=== PATIENT | male | born 1975 | race Caucasian/White ===

== ENCOUNTER 2021-01-10 07:49 | Inpatient (IN) | payer BC ==
[2021-01-10] MEDS ORDERED: Sodium Chloride 0.9% 1,000 ML IV ONE (08:08)
[2021-01-10] MEDS ORDERED: Ondansetron 4 MG/2 ML SDV IV ONE (08:08)
[2021-01-10] MEDS ORDERED: HYDROmorphone 1 MG/ML Syringe IVPUSH ONE ×3 (08:08→10:58)
--- NOTE | 2021-01-10 08:21 | EDM.PDOC ---
"<Annalisa Sheldonian - Last Filed: 01/10/21 10:28> ED HPI GENERAL MEDICAL PROBLEM - General Chief Complaint: Gastrointestinal Problem Stated Complaint: AMBULANCE Time Seen by Provider: 01/10/21 08:12 - Related Data Allergies Allergy/AdvReac Type Severity Reaction Status Date / Time No Known Allergies Allergy Verified 01/10/21 08:05 Home Meds: Home Meds Metoprolol Succinate 25 mg PO DAILY 01/10/21 [History] Course - Radiology Interpretation Free Text/Narrative:: [facility] Final Radiology Report Call: [phone] assistance Online chat: [email or web address] Name: JAZIEL SOLIZ Age: 45Years M Date: 01/10/2021 SSN: -- : [id number] Study: CT ABDOMEN PELVIS W CONT Requesting Physician: ANNALISA SHELDON Images: [phone] Addl Studies: Provided Clinical History: abdominal pain, Lipase >1900 Contrast: With Contrast Medium: Isovue 300 Contrast Amount: 100 mL Contrast Method: Intravenous (IV) Page 1 of 2 PROCEDURE INFORMATION: Exam: CT Abdomen And Pelvis With Contrast Exam date and time: 01/10/2021 9:24 AM Age: 45 years old Clinical indication: Other: Abdominal pain, lipase >1900 TECHNIQUE: Imaging protocol: Computed tomography of the abdomen and pelvis with contrast. Radiation optimization: All CT scans at this facility use at least one of these dose optimization techniques: automated exposure control; mA and/or kV adjustment per patient size (includes targeted exams where dose is matched to clinical indication); or iterative reconstruction. Contrast material: ISOVUE 300; Contrast volume: 100 ml; Contrast route: INTRAVENOUS (IV); COMPARISON: No relevant prior studies available. FINDINGS: Liver: Diffuse fatty infiltration of the liver. Liver is enlarged at 21.8 cm. Gallbladder and bile ducts: The gallbladder is normal. No dilatation of the intrahepatic or extrahepatic bile ducts. Pancreas: Calcifications present in the head of the pancreas. There is edema present in the peripancreatic. Pancreatic duct is dilated measuring 5 mm. Spleen: Calcified splenic granulomas. Adrenal glands: Normal. No mass. Kidneys and ureters: Nonobstructive left nephrolithiasis measuring 5 mm. Stomach and bowel: Unremarkable. No obstruction. No mucosal thickening. Appendix: No evidence of appendicitis. Intraperitoneal space: Unremarkable. No free air. No significant fluid collection. Vasculature: Unremarkable. No abdominal aortic aneurysm. JAZIEL SOLIZ | Final Radiology Report CONFIDENTIALITY STATEMENT This report is intended only for use by the referring physician, and only in accordance with law. If you received this in error, call [phone]. Page 2 of 2 Lymph nodes: Unremarkable. No enlarged lymph nodes. Urinary bladder: Unremarkable as visualized. Reproductive: Unremarkable as visualized. Bones/joints: Sclerotic bone island present in the left femoral neck. Soft tissues: Unremarkable. Other findings: Elevated left hemidiaphragm. IMPRESSION: 1. Acute pancreatitis. Edema present around the pancreas with no cyst formation. There are findings of chronic pancreatitis including pancreatic duct dilatation and calcifications in the pancreatic head. Recommend follow-up. 2. Nonobstructive left nephrolithiasis. 3. Diffuse fat infiltration of the liver. 4. Left diaphragmatic hernia. Thank you for allowing us to participate in the care of your patient. Dictated and Authenticated by: Ludwin Patricio MD 01/10/2021 10:20 AM Central Time ([place] & [place]) Departure - Departure Disposition: Admitted As Inpatient 67 Clinical Impression: Pancreatitis Qualifiers: Chronicity: acute Pancreatitis type: alcohol induced Acute pancreatitis complication: unspecified Qualified Code(s): K85.20 - Alcohol induced acute pancreatitis without necrosis or infection - Discharge Information Forms: ED Department Discharge <Naeem Murphy Vinny - Last Filed: 01/10/21 10:49> ED HPI GENERAL MEDICAL PROBLEM - General Source of Information: Reports: Patient History Limitations: Reports: No Limitations - History of Present Illness INITIAL COMMENTS - FREE TEXT/NARRATIVE: 45 y/o M c/o diffuse abd pn started at 0600 this morning. The pain is 10/10 sharp in nature, constant, non radiating. Hx of pancreatitis and a hernia repair. [facility] when the pain started. Pt got off the train in [place] and called 911 and was then brought in by EMS. Has not been passing flatus since the pain started nor has he had any bowel movements. Denies fever, cough, cp, back on, NVD, flank pn, denies trauma or foreign objects to rectum, denies blood in stool or urine. 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 Abdominal Pain Score (Numeric/FACES): 10 Past Medical History HEENT History: Reports: Impaired Vision Cardiovascular History: Reports: Hypertension Respiratory History: Reports: None Gastrointestinal History: Reports: Other (See Below) Other Gastrointestinal History: hx hernia surgery Genitourinary History: Reports: None Musculoskeletal History: Reports: None Neurological History: Reports: None Psychiatric History: Reports: None Endocrine/Metabolic History: Reports: None Hematologic History: Reports: None Immunologic History: Reports: None Oncologic (Cancer) History: Reports: None Dermatologic History: Reports: None - Infectious Disease History Infectious Disease History: Reports: None - Past Surgical History Head Surgeries/Procedures: Reports: None Social & Family History - Family History Family Medical History: No Pertinent Family History - Tobacco Use Tobacco Use Status *Q: Never Tobacco User - Caffeine Use Caffeine Use: Reports: Soda - Recreational Drug Use Recreational Drug Use: No ED ROS GENERAL - Review of Systems Review Of Systems: Comprehensive ROS is negative, except as noted in HPI. ED EXAM, GI/ABD - Physical Exam Exam: See Below Exam Limited By: No Limitations General Appearance: Alert, Anxious, Moderate Distress Throat/Mouth: Normal Inspection, Normal Lips, Normal Teeth, Normal Gums, Normal Oropharynx, Normal Voice, No Airway Compromise Head: Atraumatic, Normocephalic Neck: Normal Inspection, Supple, Non-Tender, Full Range of Motion Respiratory/Chest: Lungs Clear, Normal Breath Sounds Cardiovascular: Regular Rate, Rhythm, Tachycardia GI/Abdominal Exam: Distended, Tender (tender throughout no brusing or visible trauma. ) (Male) Exam: Deferred Rectal (Males) Exam: Deferred Back Exam: Normal Inspection, Full Range of Motion Extremities: Normal Inspection, Normal Range of Motion, Non-Tender, Normal Capillary Refill, No Pedal Edema Neurological: Alert, Oriented, CN II-XII Intact, Normal Cognition, Normal Gait, Normal Reflexes, No Motor/Sensory Deficits Psychiatric: Anxious (from pain) Course - Vital Signs Last Recorded V/S: Last Vital Signs Temp 96.4 F L 01/10/21 07:57 Pulse 93 01/10/21 07:57 Resp 20 01/10/21 07:57 BP 155/108 H 01/10/21 07:57 Pulse Ox 93 L 01/10/21 07:57 - Orders/Labs/Meds Orders: Active Orders 24 hr Category Date Time Status Peripheral IV Care [RC] . DIRECTED Care 01/10/21 08:08 Active DRUG SCREEN URINE BIORAD [URCHEM] Stat Lab 01/10/21 08:07 Ordered UA RFX BRISEYDA AND CULT IF INDIC [URIN] Stat Lab 01/10/21 08:08 Ordered Sodium Chloride 0.9% [Saline Flush] Med 01/10/21 08:08 Active 10 ml FLUSH ASDIRECTED PRN Peripheral IV Insertion Adult [OM.PC] Stat Oth 01/10/21 08:08 Ordered Medication Orders Sodium Chloride (Sodium Chloride 0.9% 10 Ml Syringe) 10 ml FLUSH ASDIRECTED PRN PRN Reason: Keep Vein Open Last Admin: 01/10/21 08:24 Dose: 10 ml Documented by: MAKAYLA Labs: Laboratory Tests 01/10/21 01/10/21 01/10/21 Range/Units 08:14 08:14 08:14 WBC 6.4 (5.0-10.0) 10^3/uL RBC 4.78 (4.6-6.2) 10^6/uL Hgb 15.9 (14.0-18.0) g/dL Hct 44.3 (40.0-54.0) % MCV 92.7 (80-100) fL MCH 33.3 (27.0-34.0) pg MCHC 35.9 H (33.0-35.0) g/dL Plt Count 269 (150-450) 10^3/uL Neut % (Auto) 72.5 (42.2-75.2) % Lymph % (Auto) 16.5 L (20.5-50.1) % Wells % (Auto) 9.4 H (2-8) % Eos % (Auto) 1.1 (1.0-3.0) % Baso % (Auto) 0.5 (0.0-1.0) % Sodium 140 (136-145) mmol/L Potassium 4.5 (3.5-5.1) mmol/L Chloride 103 (98-107) mmol/L Carbon Dioxide 27 (21-32) mmol/L Anion Gap 14.5 H (7-13) mEq/L BUN 16 (7-18) mg/dL Creatinine 1.09 (0.70-1.30) mg/dL Est Cr Clr Drug Dosing 128.28 mL/min Estimated GFR (MDRD) > 60 BUN/Creatinine Ratio 14.7 (No establ ref range) Glucose 108 H (70-99) mg/dL Lactic Acid 1.5 (0.4-2.0) mmol/L Calcium 8.8 (8.5-10.1) mg/dL Total Bilirubin 0.4 (0.2-1.0) mg/dL AST 34 (15-37) U/L ALT 51 (16-63) U/L Alkaline Phosphatase 102 (46-116) U/L C-Reactive Protein < 0.2 (0.0-0.9) mg/dL Total Protein 6.9 (6.4-8.2) g/dL Albumin 3.7 (3.4-5.0) g/dL Globulin 3.2 Albumin/Globulin Ratio 1.2 Amylase 165 H (25-115) U/L Lipase 1938 H (73-393) U/L Meds: Medications Generic Name Dose Route Start Last Admin Trade Name Judy PRN Reason Stop Dose Admin Sodium Chloride 10 ml 01/10/21 08:08 01/10/21 08:24 Sodium Chloride 0.9% 10 Ml Syringe FLUSH 10 ml ASDIRECTED PRN Administration Keep Vein Open Discontinued Medications Generic Name Dose Route Start Last Admin Trade Name Judy PRN Reason Stop Dose Admin Hydromorphone HCl 1 mg 01/10/21 08:08 01/10/21 08:19 Hydromorphone 1 Mg/Ml Syringe IVPUSH 01/10/21 08:09 1 mg ONETIME ONE Administration Hydromorphone HCl 1 mg 01/10/21 08:46 01/10/21 09:06 Hydromorphone 1 Mg/Ml Syringe IVPUSH 01/10/21 08:47 1 mg ONETIME ONE Administration Sodium Chloride 1,000 mls @ 999 mls/hr 01/10/21 08:08 01/10/21 08:23 Normal Saline IV 01/10/21 09:08 999 mls/hr .BOLUS ONE Administration Iopamidol 100 ml 01/10/21 08:45 01/10/21 10:05 Iopamidol 612 Mg/Ml 100 Ml Bottle IVPUSH 01/10/21 08:46 100 ml ONETIME ONE Administration Ondansetron HCl 4 mg 01/10/21 08:08 01/10/21 08:20 Ondansetron 4 Mg/2 Ml Sdv IV 01/10/21 08:09 4 mg ONETIME ONE Administration Ondansetron HCl 4 mg 01/10/21 08:46 Ondansetron 4 Mg/2 Ml Sdv IV 01/10/21 08:47 ONETIME ONE - Re-Assessments/Exams Free Text/Narrative Re-Assessment/Exam: 01/10/21 10:43 Consulted with the customer care voice consultant hospitalist Dr. Hu who accepted the pt for further treatment. Departure - Departure Time of Disposition: 10:44 (Admitted by Dr. Hu) Condition: Fair - Discharge Information *PRESCRIPTION DRUG MONITORING PROGRAM REVIEWED*: Not Applicable *COPY OF PRESCRIPTION DRUG MONITORING REPORT IN PATIENT VON: Not Applicable Sepsis Event Note (ED) - Evaluation Sepsis Screening Result: No Definite Risk - Focused Exam Vital Signs: Vital Signs Temp Pulse Resp BP Pulse Ox 01/10/21 07:57 96.4 F L 93 20 155/108 H 93 L"
[2021-01-10] MEDS: Sodium Chloride 0.9% 10 ML Syringe FLUSH PRN (08:24)
[2021-01-10] MEDS ORDERED: Iopamidol 612 MG/ML 100 ML Bottle IVPUSH ONE (08:45)
[2021-01-10 08:49] LABS: ANION GAP 14.5 mEq/L (7-13); CHLORIDE,CL 103 mmol/L (98-107); SODIUM,NA 140 mmol/L (136-145)
--- NOTE | 2021-01-10 10:21 | CT ---
PROCEDURE INFORMATION: Exam: CT Abdomen And Pelvis With Contrast Exam date and time: 01/10/2021 9:24 AM Age: 45 years old Clinical indication: Other: Abdominal pain, lipase >1900 TECHNIQUE: Imaging protocol: Computed tomography of the abdomen and pelvis with contrast. Radiation optimization: All CT scans at this facility use at least one of these dose optimization techniques: automated exposure control; mA and/or kV adjustment per patient size (includes targeted exams where dose is matched to clinical indication); or iterative reconstruction. Contrast material: ISOVUE 300; Contrast volume: 100 ml; Contrast route: INTRAVENOUS (IV); COMPARISON: No relevant prior studies available. FINDINGS: Liver: Diffuse fatty infiltration of the liver. Liver is enlarged at 21.8 cm. Gallbladder and bile ducts: The gallbladder is normal. No dilatation of the intrahepatic or extrahepatic bile ducts. Pancreas: Calcifications present in the head of the pancreas. There is edema present in the peripancreatic. Pancreatic duct is dilated measuring 5 mm. Spleen: Calcified splenic granulomas. Adrenal glands: Normal. No mass. Kidneys and ureters: Nonobstructive left nephrolithiasis measuring 5 mm. Stomach and bowel: Unremarkable. No obstruction. No mucosal thickening. Appendix: No evidence of appendicitis. Intraperitoneal space: Unremarkable. No free air. No significant fluid collection. Vasculature: Unremarkable. No abdominal aortic aneurysm. Lymph nodes: Unremarkable. No enlarged lymph nodes. Urinary bladder: Unremarkable as visualized. Reproductive: Unremarkable as visualized. Bones/joints: Sclerotic bone island present in the left femoral neck. Soft tissues: Unremarkable. Other findings: Elevated left hemidiaphragm. IMPRESSION: 1. Acute pancreatitis. Edema present around the pancreas with no cyst formation. There are findings of chronic pancreatitis including pancreatic duct dilatation and calcifications in the pancreatic head. Recommend follow-up. 2. Nonobstructive left nephrolithiasis. 3. Diffuse fat infiltration of the liver. 4. Left diaphragmatic hernia.
[2021-01-10] MEDS: Ondansetron 4 MG/2 ML SDV IV ONE ×2 (11:01→11:03)
[2021-01-10] MEDS ORDERED: Ondansetron 4 MG/2 ML SDV ONE (11:05)
[2021-01-10] MEDS ORDERED: Ondansetron 4 MG Tab.DIS PO PRN (12:35)
[2021-01-10] MEDS ORDERED: Temazepam 15 MG Cap PO PRN (12:35)
[2021-01-10] MEDS ORDERED: Promethazine 25 MG/ML SDV IM PRN (12:35)
--- NOTE | 2021-01-10 12:49 | PCM.HP ---
H&P History of Present Illness - General Date of Service: 01/10/21 Admit Problem/Dx: Admission Diagnosis/Problem Admission Diagnosis/Problem Abdominal pain. - History of Present Illness Initial Comments - Free Text/Narative: Abdominal pain and nausea. Other HPI/Comments: Mr. Marie is a 45-year-old male with his history of alcoholism and chronic pancreatitis who presented to the ED with an episode of acute abdominal pain. He was on a train on his way from [place] to [facility] when he developed a sudden onset of epigastric and LUQ abdominal pain. The pain is a dull in nature, about 8 out of 10 intensity mainly epigastric and left upper quadrant regions. It feels similar to his prior acute pancreatitis pain. He also has some nausea but no vomiting. He has had about 6 episodes of acute pancreatitis in the past requiring hospitalizations in different hospitals. His most recent episode was about a week ago in [place]. He admits to having had 2 to 3 glasses of wine yesterday and thinks that this may have triggered the pain episode. He was a heavy alcohol drinker until about 7 years ago. 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 He admits to drinking heavily during the time and admits to trying out a few street drugs such as marijuana and cocaine. After he got he moved to [place] where he currently lives with his family. Abdominal Pain Score (Numeric/FACES): 2 - Related Data Allergies/Adverse Reactions: Allergies Allergy/AdvReac Type Severity Reaction Status Date / Time No Known Allergies Allergy Verified 01/10/21 12:08 Home Medications: Home Meds Escitalopram Oxalate [Lexapro] 20 mg PO DAILY 01/10/21 [History] Past Medical History HEENT History: Reports: Impaired Vision Cardiovascular History: Reports: Hypertension Respiratory History: Reports: None Gastrointestinal History: Reports: Pancreatitis, Other (See Below) Other Gastrointestinal History: hx hernia surgery Genitourinary History: Reports: None Musculoskeletal History: Reports: None Neurological History: Reports: None Psychiatric History: Reports: None Endocrine/Metabolic History: Reports: None Hematologic History: Reports: None Immunologic History: Reports: None Oncologic (Cancer) History: Reports: None Dermatologic History: Reports: None - Infectious Disease History Infectious Disease History: Reports: None - Past Surgical History Head Surgeries/Procedures: Reports: None Social & Family History - Family History Family Medical History: No Pertinent Family History - Tobacco Use Tobacco Use Status *Q: Never Tobacco User - Caffeine Use Caffeine Use: Reports: Soda - Recreational Drug Use Recreational Drug Use: No H&P Review of Systems - Review of Systems: Review Of Systems: See Below Review of Systems Comment:: General: denies any fever, chills or malaise. CVS: Denies any chest pain or angina symptoms lungs: Denies any cough, wheezes or SOB PA: denies any vomiting, hematochezia or change in bowel habits. EVELYN: Denies any dysuria , frequency , urgency or hematuria neuro: Denies any seizures, tremors or focal weaknesses psych: Denies being depressed. Denies having any hallucinations. Exam - Exam Exam: See Below - Vital Signs Vital Signs: Last Vital Signs Temp 98.4 F 01/10/21 12:07 Pulse 97 01/10/21 12:07 Resp 16 01/10/21 12:07 BP 143/87 H 01/10/21 12:07 Pulse Ox 100 01/10/21 12:07 Weight: 229 lb - Exam Physical Exam Comments:: General: well developed male. In no acute distress CVS: S1S2 appreciated. RRR, no murmurs, rubs or gallops. lungs: clear bilaterally. no rales or wheezes pa: soft, tender LUQ. no rebound or guarding ext: no clubbing, cyanosis or edema neuro: no focal deficits. - Patient Data Lab Results Last 24 hrs: Laboratory Results - last 24 hr 01/10/21 01/10/21 01/10/21 Range/Units 08:14 08:14 08:14 WBC 6.4 (5.0-10.0) 10^3/uL RBC 4.78 (4.6-6.2) 10^6/uL Hgb 15.9 (14.0-18.0) g/dL Hct 44.3 (40.0-54.0) % MCV 92.7 (80-100) fL MCH 33.3 (27.0-34.0) pg MCHC 35.9 H (33.0-35.0) g/dL Plt Count 269 (150-450) 10^3/uL Neut % (Auto) 72.5 (42.2-75.2) % Lymph % (Auto) 16.5 L (20.5-50.1) % Carver % (Auto) 9.4 H (2-8) % Eos % (Auto) 1.1 (1.0-3.0) % Baso % (Auto) 0.5 (0.0-1.0) % Sodium 140 (136-145) mmol/L Potassium 4.5 (3.5-5.1) mmol/L Chloride 103 (98-107) mmol/L Carbon Dioxide 27 (21-32) mmol/L Anion Gap 14.5 H (7-13) mEq/L BUN 16 (7-18) mg/dL Creatinine 1.09 (0.70-1.30) mg/dL Est Cr Clr Drug Dosing 128.28 mL/min Estimated GFR (MDRD) > 60 BUN/Creatinine Ratio 14.7 (No establ ref range) Glucose 108 H (70-99) mg/dL Lactic Acid 1.5 (0.4-2.0) mmol/L Calcium 8.8 (8.5-10.1) mg/dL Total Bilirubin 0.4 (0.2-1.0) mg/dL AST 34 (15-37) U/L ALT 51 (16-63) U/L Alkaline Phosphatase 102 (46-116) U/L C-Reactive Protein < 0.2 (0.0-0.9) mg/dL Total Protein 6.9 (6.4-8.2) g/dL Albumin 3.7 (3.4-5.0) g/dL Globulin 3.2 Albumin/Globulin Ratio 1.2 Amylase 165 H (25-115) U/L Lipase 1938 H (73-393) U/L SARS-CoV-2 RNA (GAYE) (NEGATIVE) 01/10/21 Range/Units 11:06 WBC (5.0-10.0) 10^3/uL RBC (4.6-6.2) 10^6/uL Hgb (14.0-18.0) g/dL Hct (40.0-54.0) % MCV (80-100) fL MCH (27.0-34.0) pg MCHC (33.0-35.0) g/dL Plt Count (150-450) 10^3/uL Neut % (Auto) (42.2-75.2) % Lymph % (Auto) (20.5-50.1) % Carver % (Auto) (2-8) % Eos % (Auto) (1.0-3.0) % Baso % (Auto) (0.0-1.0) % Sodium (136-145) mmol/L Potassium (3.5-5.1) mmol/L Chloride (98-107) mmol/L Carbon Dioxide (21-32) mmol/L Anion Gap (7-13) mEq/L BUN (7-18) mg/dL Creatinine (0.70-1.30) mg/dL Est Cr Clr Drug Dosing mL/min Estimated GFR (MDRD) BUN/Creatinine Ratio (No establ ref range) Glucose (70-99) mg/dL Lactic Acid (0.4-2.0) mmol/L Calcium (8.5-10.1) mg/dL Total Bilirubin (0.2-1.0) mg/dL AST (15-37) U/L ALT (16-63) U/L Alkaline Phosphatase (46-116) U/L C-Reactive Protein (0.0-0.9) mg/dL Total Protein (6.4-8.2) g/dL Albumin (3.4-5.0) g/dL Globulin Albumin/Globulin Ratio Amylase (25-115) U/L Lipase (73-393) U/L SARS-CoV-2 RNA (GAYE) Negative (NEGATIVE) Result Diagrams: 01/10/21 08:14 01/10/21 08:14 - Problem List (1) Acute on chronic pancreatitis SNOMED Code(s): 390676410 ICD Code: K85.90 - ACUTE PANCREATITIS WITHOUT NECROSIS OR INFECTION, UNSP; K86.1 - OTHER CHRONIC PANCREATITIS Status: Acute Current Visit: Yes (2) DVT prophylaxis SNOMED Code(s): 523839904, 711408670 ICD Code: Z29.9 - ENCOUNTER FOR PROPHYLACTIC MEASURES, UNSPECIFIED Status: Acute Current Visit: Yes (3) Full code status SNOMED Code(s): 537519571 ICD Code: Z78.9 - OTHER SPECIFIED HEALTH STATUS Status: Acute Current Visit: Yes (4) Alcoholism SNOMED Code(s): 5024955 ICD Code: F10.20 - ALCOHOL DEPENDENCE, UNCOMPLICATED Status: Acute Current Visit: Yes Problem List Initiated/Reviewed/Updated: Yes Orders Last 24hrs: Active Orders 24 hr Category Date Time Status Admission Diagnosis [ADT] Stat ADT 01/10/21 11:21 Ordered Admission Status [Patient Status] [ADT] Routine ADT 01/10/21 11:21 Active Antiembolic Devices [RC] PER UNIT ROUTINE Care 01/10/21 12:37 Ordered Oxygen Therapy [RC] PRN Care 01/10/21 12:35 Ordered Up ad Bree [RC] ASDIRECTED Care 01/10/21 12:35 Ordered VTE/DVT Education [RC] PER UNIT ROUTINE Care 01/10/21 12:35 Ordered Vital Signs [RC] Q4H Care 01/10/21 12:35 Ordered Nothing per Oral Now Diet [DIET] Diet 01/10/21 Lunch Ordered DRUG SCREEN URINE BIORAD [URCHEM] Stat Lab 01/10/21 08:07 Ordered UA RFX BRISEYDA AND CULT IF INDIC [URIN] Stat Lab 01/10/21 08:08 Ordered Acetaminophen/oxyCODONE [Percocet 325-5 MG] Med 01/10/21 12:35 Ordered 1 tab PO Q4H PRN Dextrose 5%-0.45% NaCl [Dextrose 5%-1/2 NS] 1,000 ml Med 01/10/21 12:45 Ordered IV ASDIRECTED Escitalopram Oxalate [Lexapro] Med 01/10/21 12:45 Ordered 20 mg PO DAILY Ibuprofen [Motrin] Med 01/10/21 12:35 Ordered 400 mg PO Q6H PRN Ondansetron [Zofran ODT] Med 01/10/21 12:35 Ordered 4 mg PO Q4H PRN Promethazine [Phenergan] Med 01/10/21 12:35 Ordered 6.25 mg IM Q6H PRN Sodium Chloride 0.9% [Saline Flush] Med 01/10/21 08:08 Active 10 ml FLUSH ASDIRECTED PRN Temazepam [Restoril] Med 01/10/21 12:35 Ordered 15 mg PO BEDTIME PRN Zolpidem [Ambien] Med 01/10/21 12:35 Ordered 5 mg PO BEDTIME PRN Peripheral IV Insertion Adult [OM.PC] Stat Oth 01/10/21 08:08 Ordered Sequential Compression Device [OM.PC] Per Unit Routine Oth 01/10/21 12:36 Ordered Resuscitation Status Routine Resus Stat 01/10/21 12:35 Ordered Medication Orders Dextrose/Sodium Chloride (Dextrose 5%-1/2 Ns) 1,000 mls @ 150 mls/hr IV ASDIRECTED KE Stop: 01/11/21 12:46 Ibuprofen (Ibuprofen 400 Mg Tab) 400 mg PO Q6H PRN PRN Reason: Pain (mild 1-3) Non-Formulary Medication (Escitalopram Oxalate [Lexapro]) 20 mg PO DAILY KE Ondansetron HCl (Ondansetron 4 Mg Tab.Dis) 4 mg PO Q4H PRN PRN Reason: nausea, able to take PO Oxycodone/Acetaminophen (Acetaminophen/Oxycodone 325-5 Mg Tab) 1 tab PO Q4H PRN PRN Reason: Pain (moderate 4-6) Promethazine HCl (Promethazine 25 Mg/Ml Sdv) 6.25 mg IM Q6H PRN PRN Reason: Nausea/Vomiting Sodium Chloride (Sodium Chloride 0.9% 10 Ml Syringe) 10 ml FLUSH ASDIRECTED PRN PRN Reason: Keep Vein Open Last Admin: 01/10/21 08:24 Dose: 10 ml Documented by: MAKAYLA Temazepam (Temazepam 15 Mg Cap) 15 mg PO BEDTIME PRN PRN Reason: Sleep Zolpidem Tartrate (Zolpidem 5 Mg Tab) 5 mg PO BEDTIME PRN PRN Reason: Sleep Assessment/Plan Comment:: Acute on chronic pancreatitis Admit pt to the medical floor npo status Pain and nausea management Aggressive fluid hydration h/o Alcoholism Pt was strongly advised to completely abstain from any ETOH use. Full code status DVT prophylaxis
[2021-01-10] MEDS: Acetaminophen/oxyCODONE 325-5 MG Tab PO PRN (13:12)
[2021-01-10] MEDS: Dextrose 5%-0.45% NaCl 1,000 ML IV SCH ×2 (13:15→19:30)
[2021-01-10] MEDS: HYDROmorphone 1 MG/ML Syringe IVPUSH PRN ×6 (14:14→23:17)
[2021-01-10] MEDS: Escitalopram 10 MG Tab PO SCH (17:07)
[2021-01-10] MEDS ORDERED: Thiamine 200 MG/2 ML MDV IVPUSH SCH (20:45)
[2021-01-10] MEDS ORDERED: LORazepam 0.5 MG Tab PO PRN (23:41)
[2021-01-11 00:05] LABS: BENZODIAZEPINE,URINE NEGATIVE (NEGATIVE); MDMA (ECSTASY), URINE NEGATIVE (NEGATIVE); METHADONE,URINE NEGATIVE (NEGATIVE); METHAMPHETAMINES,URINE NEGATIVE (NEGATIVE); OPIATES,URINE POSITIVE (NEGATIVE); TCA,URINE NEGATIVE (NEGATIVE)
[2021-01-11 00:06] LABS: AMPHETAMINES,URINE POSITIVE (NEGATIVE); BARBITURATES,URINE NEGATIVE (NEGATIVE); OXYCODONE,URINE POSITIVE (NEGATIVE); PHENCYCLIDINE,URINE NEGATIVE (NEGATIVE)
[2021-01-11] MEDS: Dextrose 5%-0.45% NaCl 1,000 ML IV SCH ×4 (01:41→21:29)
[2021-01-11] MEDS: HYDROmorphone 1 MG/ML Syringe IVPUSH PRN ×8 (01:43→23:12)
[2021-01-11] MEDS: Pantoprazole 40 MG Tab.CR PO SCH (05:19)
--- NOTE | 2021-01-11 06:25 | PCM.CONSN ---
- General Info Date of Service: 01/11/21 - Patient Data Vitals - Most Recent: Last Vital Signs Temp 97.5 F 01/11/21 00:00 Pulse 100 01/11/21 00:00 Resp 16 01/11/21 00:00 BP 139/93 H 01/11/21 00:00 Pulse Ox 98 01/11/21 00:00 Weight - Most Recent: 229 lb I&O - Last 24 Hours: Intake & Output 01/10/21 01/10/21 01/11/21 14:59 22:59 06:59 Intake Total 1000 1492 Output Total 500 Balance 1000 992 Lab Results Last 24 Hours: Laboratory Results - last 24 hr 01/10/21 01/10/21 01/10/21 Range/Units 08:14 08:14 08:14 WBC 6.4 (5.0-10.0) 10^3/uL RBC 4.78 (4.6-6.2) 10^6/uL Hgb 15.9 (14.0-18.0) g/dL Hct 44.3 (40.0-54.0) % MCV 92.7 (80-100) fL MCH 33.3 (27.0-34.0) pg MCHC 35.9 H (33.0-35.0) g/dL Plt Count 269 (150-450) 10^3/uL Neut % (Auto) 72.5 (42.2-75.2) % Lymph % (Auto) 16.5 L (20.5-50.1) % [place] % (Auto) 9.4 H (2-8) % Eos % (Auto) 1.1 (1.0-3.0) % Baso % (Auto) 0.5 (0.0-1.0) % Sodium 140 (136-145) mmol/L Potassium 4.5 (3.5-5.1) mmol/L Chloride 103 (98-107) mmol/L Carbon Dioxide 27 (21-32) mmol/L Anion Gap 14.5 H (7-13) mEq/L BUN 16 (7-18) mg/dL Creatinine 1.09 (0.70-1.30) mg/dL Est Cr Clr Drug Dosing 128.28 mL/min Estimated GFR (MDRD) > 60 BUN/Creatinine Ratio 14.7 (No establ ref range) Glucose 108 H (70-99) mg/dL Lactic Acid 1.5 (0.4-2.0) mmol/L Calcium 8.8 (8.5-10.1) mg/dL Total Bilirubin 0.4 (0.2-1.0) mg/dL AST 34 (15-37) U/L ALT 51 (16-63) U/L Alkaline Phosphatase 102 (46-116) U/L C-Reactive Protein < 0.2 (0.0-0.9) mg/dL Total Protein 6.9 (6.4-8.2) g/dL Albumin 3.7 (3.4-5.0) g/dL Globulin 3.2 Albumin/Globulin Ratio 1.2 Amylase 165 H (25-115) U/L Lipase 1938 H (73-393) U/L Urine Color (YELLOW) Urine Appearance (CLEAR) Urine pH (5.0-9.0) Ur Specific [place] (1.005-1.030) Urine Protein (NEGATIVE) Urine Glucose (UA) (NEGATIVE) Urine Ketones (NEGATIVE) Urine Occult Blood (NEGATIVE) Urine Nitrite (NEGATIVE) Urine Bilirubin (NEGATIVE) Urine Urobilinogen (0.2-1.0) mg/dL Ur Leukocyte Esterase (NEGATIVE) Urine Opiates Screen (NEGATIVE) Ur Oxycodone Screen (NEGATIVE) Urine Methadone Screen (NEGATIVE) Ur Barbiturates Screen (NEGATIVE) U Tricyclic Antidepress (NEGATIVE) Ur Phencyclidine Scrn (NEGATIVE) Ur Amphetamine Screen (NEGATIVE) U Methamphetamines Scrn (NEGATIVE) Urine MDMA Screen (NEGATIVE) U Benzodiazepines Scrn (NEGATIVE) Urine Cocaine Screen (NEGATIVE) U Marijuana (THC) Screen (NEGATIVE) SARS-CoV-2 RNA (GAYE) (NEGATIVE) 01/10/21 01/10/21 01/10/21 Range/Units 11:06 23:00 23:00 WBC (5.0-10.0) 10^3/uL RBC (4.6-6.2) 10^6/uL Hgb (14.0-18.0) g/dL Hct (40.0-54.0) % MCV (80-100) fL MCH (27.0-34.0) pg MCHC (33.0-35.0) g/dL Plt Count (150-450) 10^3/uL Neut % (Auto) (42.2-75.2) % Lymph % (Auto) (20.5-50.1) % [place] % (Auto) (2-8) % Eos % (Auto) (1.0-3.0) % Baso % (Auto) (0.0-1.0) % Sodium (136-145) mmol/L Potassium (3.5-5.1) mmol/L Chloride (98-107) mmol/L Carbon Dioxide (21-32) mmol/L Anion Gap (7-13) mEq/L BUN (7-18) mg/dL Creatinine (0.70-1.30) mg/dL Est Cr Clr Drug Dosing mL/min Estimated GFR (MDRD) BUN/Creatinine Ratio (No establ ref range) Glucose (70-99) mg/dL Lactic Acid (0.4-2.0) mmol/L Calcium (8.5-10.1) mg/dL Total Bilirubin (0.2-1.0) mg/dL AST (15-37) U/L ALT (16-63) U/L Alkaline Phosphatase (46-116) U/L C-Reactive Protein (0.0-0.9) mg/dL Total Protein (6.4-8.2) g/dL Albumin (3.4-5.0) g/dL Globulin Albumin/Globulin Ratio Amylase (25-115) U/L Lipase (73-393) U/L Urine Color Yellow (YELLOW) Urine Appearance Clear (CLEAR) Urine pH 5.5 (5.0-9.0) Ur Specific [place] 1.025 (1.005-1.030) Urine Protein Negative (NEGATIVE) Urine Glucose (UA) Negative (NEGATIVE) Urine Ketones Negative (NEGATIVE) Urine Occult Blood Negative (NEGATIVE) Urine Nitrite Negative (NEGATIVE) Urine Bilirubin Negative (NEGATIVE) Urine Urobilinogen 0.2 (0.2-1.0) mg/dL Ur Leukocyte Esterase Negative (NEGATIVE) Urine Opiates Screen Positive H (NEGATIVE) Ur Oxycodone Screen Positive H (NEGATIVE) Urine Methadone Screen Negative (NEGATIVE) Ur Barbiturates Screen Negative (NEGATIVE) U Tricyclic Antidepress Negative (NEGATIVE) Ur Phencyclidine Scrn Negative (NEGATIVE) Ur Amphetamine Screen Positive H (NEGATIVE) U Methamphetamines Scrn Negative (NEGATIVE) Urine MDMA Screen Negative (NEGATIVE) U Benzodiazepines Scrn Negative (NEGATIVE) Urine Cocaine Screen Negative (NEGATIVE) U Marijuana (THC) Screen Negative (NEGATIVE) SARS-CoV-2 RNA (GAYE) Negative (NEGATIVE) Med Orders - Current: Current Medications Escitalopram Oxalate (Escitalopram 10 Mg Tab) 20 mg PO DAILY [facility] Last Admin: 01/10/21 17:07 Dose: 20 mg Documented by: Folic Acid (Folic Acid 1 Mg Tab) 1 mg PO BEDTIME KE Hydromorphone HCl (Hydromorphone 1 Mg/Ml Syringe) 1 mg IVPUSH Q2H PRN PRN Reason: Pain (severe 7-10) Last Admin: 01/10/21 17:07 Dose: 1 mg Documented by: Hydromorphone HCl (Hydromorphone 1 Mg/Ml Syringe) 2 mg IVPUSH Q2H PRN PRN Reason: Pain (severe 7-10) Last Admin: 01/11/21 05:21 Dose: 2 mg Documented by: Dextrose/Sodium Chloride (Dextrose 5%-1/2 Ns) 1,000 mls @ 150 mls/hr IV ASDIRECTED [facility] Stop: 01/11/21 12:46 Last Admin: 01/11/21 01:41 Dose: 150 mls/hr Documented by: Ibuprofen (Ibuprofen 400 Mg Tab) 400 mg PO Q6H PRN PRN Reason: Pain (mild 1-3) Lorazepam (Lorazepam 0.5 Mg Tab) 0 mg PO TITRATE PRN; Protocol PRN Reason: alcohol withdrawal Multivitamins/Minerals/Vitamin C (Multivitamin, Childrens Tab.Chew) 1 tab PO BEDTIME [facility] Ondansetron HCl (Ondansetron 4 Mg Tab.Dis) 4 mg PO Q4H PRN PRN Reason: nausea, able to take PO Last Admin: 01/10/21 13:13 Dose: 4 mg Documented by: Oxycodone/Acetaminophen (Acetaminophen/Oxycodone 325-5 Mg Tab) 1 tab PO Q4H PRN PRN Reason: Pain (moderate 4-6), try first Last Admin: 01/10/21 13:12 Dose: 1 tab Documented by: Pantoprazole Sodium (Pantoprazole 40 Mg Tab.Cr) 40 mg PO ACBREAKFAST [facility] Last Admin: 01/11/21 05:19 Dose: 40 mg Documented by: Promethazine HCl (Promethazine 25 Mg/Ml Sdv) 6.25 mg IM Q6H PRN PRN Reason: Nausea/Vomiting Sodium Chloride (Sodium Chloride 0.9% 10 Ml Syringe) 10 ml FLUSH ASDIRECTED PRN PRN Reason: Keep Vein Open Last Admin: 01/10/21 08:24 Dose: 10 ml Documented by: Temazepam (Temazepam 15 Mg Cap) 15 mg PO BEDTIME PRN PRN Reason: Sleep, try second Thiamine HCl (Thiamine 200 Mg/2 Ml Mdv) 100 mg IVPUSH DAILY KE Last Admin: 01/10/21 21:17 Dose: 100 mg Documented by: Zolpidem Tartrate (Zolpidem 5 Mg Tab) 5 mg PO BEDTIME PRN PRN Reason: Sleep, try first Discontinued Medications Hydromorphone HCl (Hydromorphone 1 Mg/Ml Syringe) 1 mg IVPUSH ONETIME ONE Stop: 01/10/21 08:09 Last Admin: 01/10/21 08:19 Dose: 1 mg Documented by: Hydromorphone HCl (Hydromorphone 1 Mg/Ml Syringe) 1 mg IVPUSH ONETIME ONE Stop: 01/10/21 08:47 Last Admin: 01/10/21 09:06 Dose: 1 mg Documented by: Hydromorphone HCl (Hydromorphone 1 Mg/Ml Syringe) 1 mg IVPUSH ONETIME ONE Stop: 01/10/21 10:59 Last Admin: 01/10/21 11:10 Dose: 1 mg Documented by: Sodium Chloride (Normal Saline) 1,000 mls @ 999 mls/hr IV .BOLUS ONE Stop: 01/10/21 09:08 Last Admin: 01/10/21 08:23 Dose: 999 mls/hr Documented by: Iopamidol (Iopamidol 612 Mg/Ml 100 Ml Bottle) 100 ml IVPUSH ONETIME ONE Stop: 01/10/21 08:46 Last Admin: 01/10/21 10:05 Dose: 100 ml Documented by: Ondansetron HCl (Ondansetron 4 Mg/2 Ml Sdv) 4 mg IV ONETIME ONE Stop: 01/10/21 08:09 Last Admin: 01/10/21 08:20 Dose: 4 mg Documented by: Ondansetron HCl (Ondansetron 4 Mg/2 Ml Sdv) 4 mg IV ONETIME ONE Stop: 01/10/21 08:47 Last Admin: 01/10/21 11:01 Dose: 4 mg Documented by: Ondansetron HCl (Ondansetron 4 Mg/2 Ml Sdv) Confirm Administered Dose 4 mg .ROUTE .STK-MED ONE Stop: 01/10/21 11:06 Sepsis Event Note - Evaluation Sepsis Screening Result: No Definite Risk - Focused Exam Vital Signs: Vital Signs Temp Pulse Resp BP Pulse Ox 01/11/21 00:00 97.5 F 100 16 139/93 H 98 01/10/21 20:00 97 F 86 16 128/95 H 94 L Consult PN Assessment/Plan My Orders Last 24 Hours: My Active Orders 01/10/21 20:45 Thiamine [Vitamin B-1] 100 mg IVPUSH DAILY Plan: Acute on chronic alcoholic pancreatitis Continue npo status -we will attempt clear liquid diet if patient's pain is well controlled Pain and nausea management Aggressive fluid hydration h/o Alcoholism Pt was strongly advised to completely abstain from any ETOH use. switch to oral thimaine supplementation No current signs of withdrawal Full code status DVT prophylaxis
[2021-01-11] MEDS ORDERED: Ketorolac 30 MG/ML SDV IVPUSH ONE ×2 (08:03→20:15)
[2021-01-11] MEDS: Escitalopram 10 MG Tab PO SCH (08:31)
--- NOTE | 2021-01-11 11:52 | PCM.PN ---
- General Info Date of Service: 01/11/21 Functional Status: Reports: Pain Controlled - Review of Systems General: Reports: No Symptoms HEENT: Reports: No Symptoms Pulmonary: Reports: No Symptoms Cardiovascular: Reports: No Symptoms Gastrointestinal: Reports: Abdominal Pain (Continues to have epigastric abdominal pain however this is improved from prior day, no nausea or vomiting) Musculoskeletal: Reports: No Symptoms Skin: Reports: No Symptoms Neurological: Reports: No Symptoms Psychiatric: Reports: No Symptoms - Patient Data Vitals - Most Recent: Last Vital Signs Temp 99.3 F 01/11/21 08:00 Pulse 89 01/11/21 08:00 Resp 18 01/11/21 08:00 BP 134/83 01/11/21 08:00 Pulse Ox 96 01/11/21 08:00 Weight - Most Recent: 229 lb I&O - Last 24 Hours: Intake & Output 01/10/21 01/11/21 01/11/21 22:59 06:59 14:59 Intake Total 1000 1492 Output Total 500 Balance 1000 992 Lab Results Last 24 Hours: Laboratory Results - last 24 hr 01/10/21 01/10/21 01/10/21 Range/Units 11:06 23:00 23:00 Urine Color Yellow (YELLOW) Urine Appearance Clear (CLEAR) Urine pH 5.5 (5.0-9.0) Ur Specific [place] 1.025 (1.005-1.030) Urine Protein Negative (NEGATIVE) Urine Glucose (UA) Negative (NEGATIVE) Urine Ketones Negative (NEGATIVE) Urine Occult Blood Negative (NEGATIVE) Urine Nitrite Negative (NEGATIVE) Urine Bilirubin Negative (NEGATIVE) Urine Urobilinogen 0.2 (0.2-1.0) mg/dL Ur Leukocyte Esterase Negative (NEGATIVE) Urine Opiates Screen Positive H (NEGATIVE) Ur Oxycodone Screen Positive H (NEGATIVE) Urine Methadone Screen Negative (NEGATIVE) Ur Barbiturates Screen Negative (NEGATIVE) U Tricyclic Antidepress Negative (NEGATIVE) Ur Phencyclidine Scrn Negative (NEGATIVE) Ur Amphetamine Screen Positive H (NEGATIVE) U Methamphetamines Scrn Negative (NEGATIVE) Urine MDMA Screen Negative (NEGATIVE) U Benzodiazepines Scrn Negative (NEGATIVE) Urine Cocaine Screen Negative (NEGATIVE) U Marijuana (THC) Screen Negative (NEGATIVE) SARS-CoV-2 RNA (GAYE) Negative (NEGATIVE) Med Orders - Current: Current Medications Escitalopram Oxalate (Escitalopram 10 Mg Tab) 20 mg PO DAILY [facility] Last Admin: 01/11/21 08:31 Dose: 20 mg Documented by: Folic Acid (Folic Acid 1 Mg Tab) 1 mg PO BEDTIME [facility] Hydromorphone HCl (Hydromorphone 1 Mg/Ml Syringe) 1 mg IVPUSH Q2H PRN PRN Reason: Pain (severe 7-10) Last Admin: 01/10/21 17:07 Dose: 1 mg Documented by: Hydromorphone HCl (Hydromorphone 1 Mg/Ml Syringe) 2 mg IVPUSH Q2H PRN PRN Reason: Pain (severe 7-10) Last Admin: 01/11/21 10:57 Dose: 2 mg Documented by: Dextrose/Sodium Chloride (Dextrose 5%-1/2 Ns) 1,000 mls @ 150 mls/hr IV ASDIRECTED [facility] Stop: 01/12/21 08:14 Last Admin: 01/11/21 08:25 Dose: 150 mls/hr Documented by: Ibuprofen (Ibuprofen 400 Mg Tab) 400 mg PO Q6H PRN PRN Reason: Pain (mild 1-3) Lorazepam (Lorazepam 0.5 Mg Tab) 0 mg PO TITRATE PRN; Protocol PRN Reason: alcohol withdrawal Multivitamins/Minerals/Vitamin C (Multivitamin, Childrens Tab.Chew) 1 tab PO BEDTIME [facility] Ondansetron HCl (Ondansetron 4 Mg Tab.Dis) 4 mg PO Q4H PRN PRN Reason: nausea, able to take PO Last Admin: 01/10/21 13:13 Dose: 4 mg Documented by: Oxycodone/Acetaminophen (Acetaminophen/Oxycodone 325-5 Mg Tab) 1 tab PO Q4H PRN PRN Reason: Pain (moderate 4-6), try first Last Admin: 01/10/21 13:12 Dose: 1 tab Documented by: Pantoprazole Sodium (Pantoprazole 40 Mg Tab.Cr) 40 mg PO ACBREAKFAST [facility] Last Admin: 01/11/21 05:19 Dose: 40 mg Documented by: Promethazine HCl (Promethazine 25 Mg/Ml Sdv) 6.25 mg IM Q6H PRN PRN Reason: Nausea/Vomiting Sodium Chloride (Sodium Chloride 0.9% 10 Ml Syringe) 10 ml FLUSH ASDIRECTED PRN PRN Reason: Keep Vein Open Last Admin: 01/10/21 08:24 Dose: 10 ml Documented by: Temazepam (Temazepam 15 Mg Cap) 15 mg PO BEDTIME PRN PRN Reason: Sleep, try second Thiamine HCl (Thiamine 100 Mg Tab) 100 mg PO BEDTIME KE Zolpidem Tartrate (Zolpidem 5 Mg Tab) 5 mg PO BEDTIME PRN PRN Reason: Sleep, try first Discontinued Medications Hydromorphone HCl (Hydromorphone 1 Mg/Ml Syringe) 1 mg IVPUSH ONETIME ONE Stop: 01/10/21 08:09 Last Admin: 01/10/21 08:19 Dose: 1 mg Documented by: Hydromorphone HCl (Hydromorphone 1 Mg/Ml Syringe) 1 mg IVPUSH ONETIME ONE Stop: 01/10/21 08:47 Last Admin: 01/10/21 09:06 Dose: 1 mg Documented by: Hydromorphone HCl (Hydromorphone 1 Mg/Ml Syringe) 1 mg IVPUSH ONETIME ONE Stop: 01/10/21 10:59 Last Admin: 01/10/21 11:10 Dose: 1 mg Documented by: Sodium Chloride (Normal Saline) 1,000 mls @ 999 mls/hr IV .BOLUS ONE Stop: 01/10/21 09:08 Last Admin: 01/10/21 08:23 Dose: 999 mls/hr Documented by: Dextrose/Sodium Chloride (Dextrose 5%-1/2 Ns) 1,000 mls @ 150 mls/hr IV ASDIRECTED [facility] Stop: 01/11/21 12:46 Last Admin: 01/11/21 01:41 Dose: 150 mls/hr Documented by: Dextrose/Sodium Chloride (Dextrose 5%-1/2 Ns) 1,000 mls @ 150 mls/hr IV ASDIRECTED [facility] Stop: 01/12/21 12:46 Iopamidol (Iopamidol 612 Mg/Ml 100 Ml Bottle) 100 ml IVPUSH ONETIME ONE Stop: 01/10/21 08:46 Last Admin: 01/10/21 10:05 Dose: 100 ml Documented by: Ketorolac Tromethamine (Ketorolac 30 Mg/Ml Sdv) 30 mg IVPUSH ONETIME ONE Stop: 01/11/21 08:04 Last Admin: 01/11/21 08:24 Dose: 30 mg Documented by: Ondansetron HCl (Ondansetron 4 Mg/2 Ml Sdv) 4 mg IV ONETIME ONE Stop: 01/10/21 08:09 Last Admin: 01/10/21 08:20 Dose: 4 mg Documented by: Ondansetron HCl (Ondansetron 4 Mg/2 Ml Sdv) 4 mg IV ONETIME ONE Stop: 01/10/21 08:47 Last Admin: 01/10/21 11:01 Dose: 4 mg Documented by: Ondansetron HCl (Ondansetron 4 Mg/2 Ml Sdv) Confirm Administered Dose 4 mg .ROUTE .STK-MED ONE Stop: 01/10/21 11:06 Last Admin: 01/11/21 07:41 Dose: Not Given Documented by: Thiamine HCl (Thiamine 200 Mg/2 Ml Mdv) 100 mg IVPUSH DAILY KE Last Admin: 01/10/21 21:17 Dose: 100 mg Documented by: - Exam General: Alert, Oriented HEENT: Pupils Equal, Pupils Reactive, EOMI, Mucous Membr. Moist/[place] Neck: Supple Lungs: Clear to Auscultation, Normal Respiratory Effort Cardiovascular: Regular Rate, Regular Rhythm GI/Abdominal Exam: Tender (epigastric - no guarding or rebound ) Back Exam: Normal Inspection, Full Range of Motion Extremities: Normal Inspection, Normal Range of Motion, Non-Tender, No Pedal Edema, Normal Capillary Refill Skin: Warm, Dry, Intact Wound/Incisions: Healing Well Neurological: No New Focal Deficit Psy/Mental Status: Alert, Normal Affect, Normal Mood - Patient Data Lab Results Last 24 hrs: Laboratory Results - last 24 hr 01/10/21 01/10/21 01/10/21 Range/Units 11:06 23:00 23:00 Urine Color Yellow (YELLOW) Urine Appearance Clear (CLEAR) Urine pH 5.5 (5.0-9.0) Ur Specific [place] 1.025 (1.005-1.030) Urine Protein Negative (NEGATIVE) Urine Glucose (UA) Negative (NEGATIVE) Urine Ketones Negative (NEGATIVE) Urine Occult Blood Negative (NEGATIVE) Urine Nitrite Negative (NEGATIVE) Urine Bilirubin Negative (NEGATIVE) Urine Urobilinogen 0.2 (0.2-1.0) mg/dL Ur Leukocyte Esterase Negative (NEGATIVE) Urine Opiates Screen Positive H (NEGATIVE) Ur Oxycodone Screen Positive H (NEGATIVE) Urine Methadone Screen Negative (NEGATIVE) Ur Barbiturates Screen Negative (NEGATIVE) U Tricyclic Antidepress Negative (NEGATIVE) Ur Phencyclidine Scrn Negative (NEGATIVE) Ur Amphetamine Screen Positive H (NEGATIVE) U Methamphetamines Scrn Negative (NEGATIVE) Urine MDMA Screen Negative (NEGATIVE) U Benzodiazepines Scrn Negative (NEGATIVE) Urine Cocaine Screen Negative (NEGATIVE) U Marijuana (THC) Screen Negative (NEGATIVE) SARS-CoV-2 RNA (GAYE) Negative (NEGATIVE) Result Diagrams: 01/10/21 08:14 01/10/21 08:14 Sepsis Event Note - Evaluation Sepsis Screening Result: No Definite Risk - Focused Exam Vital Signs: Vital Signs Temp Pulse Resp BP Pulse Ox 01/11/21 08:00 99.3 F 89 18 134/83 96 01/11/21 05:00 97 F 91 16 128/86 98 01/11/21 00:00 97.5 F 100 16 139/93 H 98 - Problem List & Annotations (1) Acute on chronic pancreatitis SNOMED Code(s): 334336286 Code(s): K85.90 - ACUTE PANCREATITIS WITHOUT NECROSIS OR INFECTION, UNSP; K86.1 - OTHER CHRONIC PANCREATITIS Status: Acute Current Visit: Yes (2) Alcoholism SNOMED Code(s): 3186046 Code(s): F10.20 - ALCOHOL DEPENDENCE, UNCOMPLICATED Status: Acute Current Visit: Yes - Problem List Review Problem List Initiated/Reviewed/Updated: Yes - My Orders Last 24 Hours: My Active Orders 01/11/21 08:13 Dextrose 5%-0.45% NaCl [Dextrose 5%-1/2 NS] 1,000 ml IV ASDIRECTED 01/11/21 21:00 Thiamine [Vitamin B-1] 100 mg PO BEDTIME - Plan Plan:: Acute on chronic alcoholic pancreatitis Continue NPO status -we will attempt clear liquid diet if patient's pain improved Pain and nausea management Aggressive fluid hydration h/o Alcoholism Pt was strongly advised to completely abstain from any ETOH use. switched to oral thimaine supplementation No current signs of withdrawal - patient denies history of withdrawal Full code status [id number] mL an hour D5 half NS Dietn.p.o. DVT prophylaxis- Lovenox
[2021-01-11] MEDS ORDERED: Dextrose 5%-0.45% NaCl 1,000 ML IV SCH (12:45)
[2021-01-11] MEDS: Folic Acid 1 MG Tab PO SCH (20:51)
[2021-01-11] MEDS: Multivitamin, Childrens Tab.Chew PO SCH (20:51)
[2021-01-11] MEDS: Thiamine 100 MG Tab PO SCH (20:51)
[2021-01-12] MEDS: HYDROmorphone 1 MG/ML Syringe IVPUSH PRN ×8 (01:28→19:32)
[2021-01-12] MEDS: Ibuprofen 400 MG Tab PO PRN ×3 (04:18→20:54)
[2021-01-12] MEDS: Dextrose 5%-0.45% NaCl 1,000 ML IV SCH ×3 (04:23→20:59)
[2021-01-12] MEDS: Pantoprazole 40 MG Tab.CR PO SCH (06:43)
--- NOTE | 2021-01-12 07:14 | PCM.PN ---
- General Info Date of Service: 01/12/21 Functional Status: Reports: Pain Controlled - Review of Systems General: Reports: No Symptoms HEENT: Reports: No Symptoms Pulmonary: Reports: No Symptoms Cardiovascular: Reports: No Symptoms Gastrointestinal: Reports: Abdominal Pain Genitourinary: Reports: No Symptoms Musculoskeletal: Reports: No Symptoms Skin: Reports: No Symptoms Neurological: Reports: No Symptoms Psychiatric: Reports: No Symptoms (Patient overall states that his abdominal pain is improved from prior day but is not back to baseline. States that he may be willing to try a diet later today and will attempt to use oral pain medications. Patient states he feels more bloated has not had a bowel movement since being in the [facility]) - Patient Data Vitals - Most Recent: Last Vital Signs Temp 98.7 F 01/12/21 04:00 Pulse 103 H 01/12/21 04:00 Resp 16 01/12/21 04:00 BP 129/93 H 01/12/21 04:00 Pulse Ox 97 01/12/21 04:00 Weight - Most Recent: 229 lb I&O - Last 24 Hours: Intake & Output 01/11/21 01/12/21 01/12/21 22:59 06:59 14:59 Intake Total 1000 1050 Output Total 1000 Balance 0 1050 Lab Results Last 24 Hours: Laboratory Results - last 24 hr 01/12/21 Range/Units 05:55 Magnesium 1.8 (1.8-2.4) mg/dL Med Orders - Current: Current Medications Enoxaparin Sodium (Enoxaparin 40 Mg/0.4 Ml Syringe) 40 mg SUBCUT DAILY [facility] Escitalopram Oxalate (Escitalopram 10 Mg Tab) 20 mg PO DAILY [facility] Last Admin: 01/11/21 08:31 Dose: 20 mg Documented by: Folic Acid (Folic Acid 1 Mg Tab) 1 mg PO BEDTIME [facility] Last Admin: 01/11/21 20:51 Dose: 1 mg Documented by: Hydromorphone HCl (Hydromorphone 1 Mg/Ml Syringe) 2 mg IVPUSH Q2H PRN PRN Reason: Pain (severe 7-10) Last Admin: 01/12/21 06:33 Dose: 2 mg Documented by: Dextrose/Sodium Chloride (Dextrose 5%-1/2 Ns) 1,000 mls @ 150 mls/hr IV ASDIRECTED [facility] Stop: 01/12/21 08:14 Last Admin: 01/12/21 04:23 Dose: 150 mls/hr Documented by: Ibuprofen (Ibuprofen 400 Mg Tab) 400 mg PO Q6H PRN PRN Reason: Pain (mild 1-3) Last Admin: 01/12/21 04:18 Dose: 400 mg Documented by: Lorazepam (Lorazepam 0.5 Mg Tab) 0 mg PO TITRATE PRN; Protocol PRN Reason: alcohol withdrawal Multivitamins/Minerals/Vitamin C (Multivitamin, Childrens Tab.Chew) 1 tab PO BEDTIME [facility] Last Admin: 01/11/21 20:51 Dose: 1 tab Documented by: Ondansetron HCl (Ondansetron 4 Mg Tab.Dis) 4 mg PO Q4H PRN PRN Reason: nausea, able to take PO Last Admin: 01/10/21 13:13 Dose: 4 mg Documented by: Oxycodone/Acetaminophen (Acetaminophen/Oxycodone 325-5 Mg Tab) 1 tab PO Q4H PRN PRN Reason: Pain (moderate 4-6), try first Last Admin: 01/10/21 13:12 Dose: 1 tab Documented by: Pantoprazole Sodium (Pantoprazole 40 Mg Tab.Cr) 40 mg PO ACBREAKFAST [facility] Last Admin: 01/12/21 06:43 Dose: 40 mg Documented by: Promethazine HCl (Promethazine 25 Mg/Ml Sdv) 6.25 mg IM Q6H PRN PRN Reason: Nausea/Vomiting Sodium Chloride (Sodium Chloride 0.9% 10 Ml Syringe) 10 ml FLUSH ASDIRECTED PRN PRN Reason: Keep Vein Open Last Admin: 01/10/21 08:24 Dose: 10 ml Documented by: Temazepam (Temazepam 15 Mg Cap) 15 mg PO BEDTIME PRN PRN Reason: Sleep, try second Thiamine HCl (Thiamine 100 Mg Tab) 100 mg PO BEDTIME [facility] Last Admin: 01/11/21 20:51 Dose: 100 mg Documented by: Zolpidem Tartrate (Zolpidem 5 Mg Tab) 5 mg PO BEDTIME PRN PRN Reason: Sleep, try first Discontinued Medications Hydromorphone HCl (Hydromorphone 1 Mg/Ml Syringe) 1 mg IVPUSH ONETIME ONE Stop: 01/10/21 08:09 Last Admin: 01/10/21 08:19 Dose: 1 mg Documented by: Hydromorphone HCl (Hydromorphone 1 Mg/Ml Syringe) 1 mg IVPUSH ONETIME ONE Stop: 01/10/21 08:47 Last Admin: 01/10/21 09:06 Dose: 1 mg Documented by: Hydromorphone HCl (Hydromorphone 1 Mg/Ml Syringe) 1 mg IVPUSH ONETIME ONE Stop: 01/10/21 10:59 Last Admin: 01/10/21 11:10 Dose: 1 mg Documented by: Hydromorphone HCl (Hydromorphone 1 Mg/Ml Syringe) 1 mg IVPUSH Q2H PRN PRN Reason: Pain (severe 7-10) Last Admin: 01/10/21 17:07 Dose: 1 mg Documented by: Sodium Chloride (Normal Saline) 1,000 mls @ 999 mls/hr IV .BOLUS ONE Stop: 01/10/21 09:08 Last Admin: 01/10/21 08:23 Dose: 999 mls/hr Documented by: Dextrose/Sodium Chloride (Dextrose 5%-1/2 Ns) 1,000 mls @ 150 mls/hr IV ASDIRECTED [facility] Stop: 01/11/21 12:46 Last Admin: 01/11/21 01:41 Dose: 150 mls/hr Documented by: Dextrose/Sodium Chloride (Dextrose 5%-1/2 Ns) 1,000 mls @ 150 mls/hr IV ASDIRECTED [facility] Stop: 01/12/21 12:46 Iopamidol (Iopamidol 612 Mg/Ml 100 Ml Bottle) 100 ml IVPUSH ONETIME ONE Stop: 01/10/21 08:46 Last Admin: 01/10/21 10:05 Dose: 100 ml Documented by: Ketorolac Tromethamine (Ketorolac 30 Mg/Ml Sdv) 30 mg IVPUSH ONETIME ONE Stop: 01/11/21 08:04 Last Admin: 01/11/21 08:24 Dose: 30 mg Documented by: Ketorolac Tromethamine (Ketorolac 30 Mg/Ml Sdv) 30 mg IVPUSH ONETIME ONE Stop: 01/11/21 20:16 Last Admin: 01/11/21 20:27 Dose: 30 mg Documented by: Ondansetron HCl (Ondansetron 4 Mg/2 Ml Sdv) 4 mg IV ONETIME ONE Stop: 01/10/21 08:09 Last Admin: 01/10/21 08:20 Dose: 4 mg Documented by: Ondansetron HCl (Ondansetron 4 Mg/2 Ml Sdv) 4 mg IV ONETIME ONE Stop: 01/10/21 08:47 Last Admin: 01/10/21 11:01 Dose: 4 mg Documented by: Ondansetron HCl (Ondansetron 4 Mg/2 Ml Sdv) Confirm Administered Dose 4 mg .ROUTE .STK-MED ONE Stop: 01/10/21 11:06 Last Admin: 01/11/21 07:41 Dose: Not Given Documented by: Thiamine HCl (Thiamine 200 Mg/2 Ml Mdv) 100 mg IVPUSH DAILY [facility] Last Admin: 01/10/21 21:17 Dose: 100 mg Documented by: - Exam General: Alert, Oriented HEENT: Pupils Equal Neck: Supple Lungs: Clear to Auscultation Cardiovascular: Regular Rate, Regular Rhythm GI/Abdominal Exam: Normal Bowel Sounds, Tender (epigastric with no rebound or guarding ) Back Exam: Normal Inspection Extremities: Normal Inspection Skin: Warm, Dry Neurological: No New Focal Deficit Psy/Mental Status: Alert, Normal Affect, Normal Mood - Patient Data Lab Results Last 24 hrs: Laboratory Results - last 24 hr 01/12/21 Range/Units 05:55 Magnesium 1.8 (1.8-2.4) mg/dL Result Diagrams: 01/10/21 08:14 01/10/21 08:14 Sepsis Event Note - Evaluation Sepsis Screening Result: No Definite Risk - Focused Exam Vital Signs: Vital Signs Temp Pulse Resp BP Pulse Ox 01/12/21 04:00 98.7 F 103 H 16 129/93 H 97 01/12/21 00:00 98.7 F 92 16 136/83 96 01/11/21 20:00 99.0 F 66 16 142/89 H 100 - Problem List & Annotations (1) Acute on chronic pancreatitis SNOMED Code(s): 772684985 Code(s): K85.90 - ACUTE PANCREATITIS WITHOUT NECROSIS OR INFECTION, UNSP; K86.1 - OTHER CHRONIC PANCREATITIS Status: Acute Current Visit: Yes (2) Alcoholism SNOMED Code(s): 0084691 Code(s): F10.20 - ALCOHOL DEPENDENCE, UNCOMPLICATED Status: Acute Current Visit: Yes - Problem List Review Problem List Initiated/Reviewed/Updated: Yes - My Orders Last 24 Hours: My Active Orders 01/11/21 08:13 Dextrose 5%-0.45% NaCl [Dextrose 5%-1/2 NS] 1,000 ml IV ASDIRECTED 01/11/21 21:00 Thiamine [Vitamin B-1] 100 mg PO BEDTIME 01/12/21 09:00 Enoxaparin [Lovenox] 40 mg SUBCUT DAILY - Plan Plan:: Acute on chronic alcoholic pancreatitis Continue NPO status -we will attempt clear liquid diet if patient's pain improved Pain and nausea management - will attempt to transition to PO pain medications Aggressive fluid hydration - continue with D5 1/2 NS - will decrease if patient has good oral intake Constipation bowel regiment h/o Alcoholism Pt was strongly advised to completely abstain from any ETOH use. Oral thimaine supplementation No current signs of withdrawal - patient denies history of withdrawal Full code status [id number] mL an hour D5 half NS Dietn.p.o. DVT prophylaxis- Lovenox
[2021-01-12] MEDS: Escitalopram 10 MG Tab PO SCH (08:09)
[2021-01-12] MEDS: Acetaminophen/oxyCODONE 325-5 MG Tab PO PRN ×4 (08:09→22:09)
[2021-01-12] MEDS: Polyethylene Glycol 3350 Powder 17 GM Packet PO SCH (08:09)
[2021-01-12] MEDS: Enoxaparin 40 MG/0.4 ML Syringe SUBCUT SCH (08:10)
[2021-01-12] MEDS: Zolpidem 5 MG Tab PO PRN (20:54)
[2021-01-12] MEDS: Folic Acid 1 MG Tab PO SCH (20:54)
[2021-01-12] MEDS: Thiamine 100 MG Tab PO SCH (20:54)
[2021-01-12] MEDS: Multivitamin, Childrens Tab.Chew PO SCH (20:55)
[2021-01-13] MEDS: fentaNYL 100 MCG/2 ML SDV IVPUSH PRN ×4 (00:24→15:49)
[2021-01-13] MEDS: Acetaminophen/oxyCODONE 325-5 MG Tab PO PRN ×5 (05:22→23:18)
[2021-01-13] MEDS: Ibuprofen 400 MG Tab PO PRN ×3 (05:22→20:12)
[2021-01-13] MEDS: Pantoprazole 40 MG Tab.CR PO SCH (05:22)
--- NOTE | 2021-01-13 06:17 | PCM.PN ---
- General Info Date of Service: 01/13/21 Admission Dx/Problem (Free Text): Admission Diagnosis/Problem Admission Diagnosis/Problem Abdominal pain. Subjective Update: Patient overall states his abdominal pain is significant improved from admission. Still having some mild lower abdominal pain. Patient states he has not had a bowel movement but is passing gas now and feels that he may need a bowel movement today. States that he is not having any nausea, chest pains or pressures, shortness of breath. States that he tolerated his clear liquid diet yesterday with no increase in pain. States that his pain is well controlled overnight with oral medications. Patient states he is willing to try oral pain medications and advancing of his diet slowly today. Functional Status: Reports: Pain Controlled, Tolerating Diet - Review of Systems General: Reports: No Symptoms HEENT: Reports: No Symptoms Pulmonary: Reports: No Symptoms Cardiovascular: Reports: No Symptoms Gastrointestinal: Reports: Abdominal Pain Genitourinary: Reports: No Symptoms Musculoskeletal: Reports: No Symptoms Skin: Reports: No Symptoms Neurological: Reports: No Symptoms Psychiatric: Reports: No Symptoms - Patient Data Vitals - Most Recent: Last Vital Signs Temp 98.2 F 01/13/21 04:00 Pulse 84 01/13/21 04:00 Resp 16 01/13/21 04:00 BP 135/87 01/13/21 04:00 Pulse Ox 100 01/13/21 04:00 Weight - Most Recent: 229 lb I&O - Last 24 Hours: Intake & Output 01/12/21 01/12/21 01/13/21 14:59 22:59 06:59 Intake Total 540 610 Output Total 600 600 Balance -60 10 Lab Results Last 24 Hours: Laboratory Results - last 24 hr 01/12/21 Range/Units 05:55 Magnesium 1.8 (1.8-2.4) mg/dL Med Orders - Current: Current Medications Enoxaparin Sodium (Enoxaparin 40 Mg/0.4 Ml Syringe) 40 mg SUBCUT DAILY [facility] Last Admin: 01/12/21 08:10 Dose: 40 mg Documented by: Escitalopram Oxalate (Escitalopram 10 Mg Tab) 20 mg PO DAILY [facility] Last Admin: 01/12/21 08:09 Dose: 20 mg Documented by: Fentanyl (Fentanyl 100 Mcg/2 Ml Sdv) 25 mcg IVPUSH Q4HR PRN PRN Reason: Abdominal Pain Last Admin: 01/13/21 00:24 Dose: 25 mcg Documented by: Folic Acid (Folic Acid 1 Mg Tab) 1 mg PO BEDTIME [facility] Last Admin: 01/12/21 20:54 Dose: 1 mg Documented by: Dextrose/Sodium Chloride (Dextrose 5%-1/2 Ns) 1,000 mls @ 100 mls/hr IV ASDIRECTED [facility] Last Admin: 01/12/21 20:59 Dose: 100 mls/hr Documented by: Ibuprofen (Ibuprofen 400 Mg Tab) 400 mg PO Q6H PRN PRN Reason: Pain (mild 1-3) Last Admin: 01/13/21 05:22 Dose: 400 mg Documented by: Lorazepam (Lorazepam 0.5 Mg Tab) 0 mg PO TITRATE PRN; Protocol PRN Reason: alcohol withdrawal Multivitamins/Minerals/Vitamin C (Multivitamin, Childrens Tab.Chew) 1 tab PO BEDTIME [facility] Last Admin: 01/12/21 20:55 Dose: 1 tab Documented by: Ondansetron HCl (Ondansetron 4 Mg Tab.Dis) 4 mg PO Q4H PRN PRN Reason: nausea, able to take PO Last Admin: 01/10/21 13:13 Dose: 4 mg Documented by: Oxycodone/Acetaminophen (Acetaminophen/Oxycodone 325-5 Mg Tab) 1 tab PO Q4H PRN PRN Reason: Pain (moderate 4-6), try first Last Admin: 01/13/21 05:22 Dose: 1 tab Documented by: Pantoprazole Sodium (Pantoprazole 40 Mg Tab.Cr) 40 mg PO ACBREAKFAST [facility] Last Admin: 01/13/21 05:22 Dose: 40 mg Documented by: Polyethylene Glycol (Polyethylene Glycol 3350 Powder 17 Gm Packet) 17 gm PO DAILY [facility] Last Admin: 01/12/21 08:09 Dose: 17 gm Documented by: Promethazine HCl (Promethazine 25 Mg/Ml Sdv) 6.25 mg IM Q6H PRN PRN Reason: Nausea/Vomiting Sodium Chloride (Sodium Chloride 0.9% 10 Ml Syringe) 10 ml FLUSH ASDIRECTED PRN PRN Reason: Keep Vein Open Last Admin: 01/10/21 08:24 Dose: 10 ml Documented by: Temazepam (Temazepam 15 Mg Cap) 15 mg PO BEDTIME PRN PRN Reason: Sleep, try second Thiamine HCl (Thiamine 100 Mg Tab) 100 mg PO BEDTIME [facility] Last Admin: 01/12/21 20:54 Dose: 100 mg Documented by: Zolpidem Tartrate (Zolpidem 5 Mg Tab) 5 mg PO BEDTIME PRN PRN Reason: Sleep, try first Last Admin: 01/12/21 20:54 Dose: 5 mg Documented by: Discontinued Medications Hydromorphone HCl (Hydromorphone 1 Mg/Ml Syringe) 1 mg IVPUSH ONETIME ONE Stop: 01/10/21 08:09 Last Admin: 01/10/21 08:19 Dose: 1 mg Documented by: Hydromorphone HCl (Hydromorphone 1 Mg/Ml Syringe) 1 mg IVPUSH ONETIME ONE Stop: 01/10/21 08:47 Last Admin: 01/10/21 09:06 Dose: 1 mg Documented by: Hydromorphone HCl (Hydromorphone 1 Mg/Ml Syringe) 1 mg IVPUSH ONETIME ONE Stop: 01/10/21 10:59 Last Admin: 01/10/21 11:10 Dose: 1 mg Documented by: Hydromorphone HCl (Hydromorphone 1 Mg/Ml Syringe) 1 mg IVPUSH Q2H PRN PRN Reason: Pain (severe 7-10) Last Admin: 01/10/21 17:07 Dose: 1 mg Documented by: Hydromorphone HCl (Hydromorphone 1 Mg/Ml Syringe) 2 mg IVPUSH Q2H PRN PRN Reason: Pain (severe 7-10) Last Admin: 01/12/21 19:32 Dose: 2 mg Documented by: Sodium Chloride (Normal Saline) 1,000 mls @ 999 mls/hr IV .BOLUS ONE Stop: 01/10/21 09:08 Last Admin: 01/10/21 08:23 Dose: 999 mls/hr Documented by: Dextrose/Sodium Chloride (Dextrose 5%-1/2 Ns) 1,000 mls @ 150 mls/hr IV ASDIRECTED [facility] Stop: 01/11/21 12:46 Last Admin: 01/11/21 01:41 Dose: 150 mls/hr Documented by: Dextrose/Sodium Chloride (Dextrose 5%-1/2 Ns) 1,000 mls @ 150 mls/hr IV ASDIRECTED [facility] Stop: 01/12/21 12:46 Dextrose/Sodium Chloride (Dextrose 5%-1/2 Ns) 1,000 mls @ 150 mls/hr IV ASDIRECTED [facility] Stop: 01/12/21 08:14 Last Admin: 01/12/21 04:23 Dose: 150 mls/hr Documented by: Iopamidol (Iopamidol 612 Mg/Ml 100 Ml Bottle) 100 ml IVPUSH ONETIME ONE Stop: 01/10/21 08:46 Last Admin: 01/10/21 10:05 Dose: 100 ml Documented by: Ketorolac Tromethamine (Ketorolac 30 Mg/Ml Sdv) 30 mg IVPUSH ONETIME ONE Stop: 01/11/21 08:04 Last Admin: 01/11/21 08:24 Dose: 30 mg Documented by: Ketorolac Tromethamine (Ketorolac 30 Mg/Ml Sdv) 30 mg IVPUSH ONETIME ONE Stop: 01/11/21 20:16 Last Admin: 01/11/21 20:27 Dose: 30 mg Documented by: Ondansetron HCl (Ondansetron 4 Mg/2 Ml Sdv) 4 mg IV ONETIME ONE Stop: 01/10/21 08:09 Last Admin: 01/10/21 08:20 Dose: 4 mg Documented by: Ondansetron HCl (Ondansetron 4 Mg/2 Ml Sdv) 4 mg IV ONETIME ONE Stop: 01/10/21 08:47 Last Admin: 01/10/21 11:01 Dose: 4 mg Documented by: Ondansetron HCl (Ondansetron 4 Mg/2 Ml Sdv) Confirm Administered Dose 4 mg .ROUTE .STK-MED ONE Stop: 01/10/21 11:06 Last Admin: 01/11/21 07:41 Dose: Not Given Documented by: Thiamine HCl (Thiamine 200 Mg/2 Ml Mdv) 100 mg IVPUSH DAILY [facility] Last Admin: 01/10/21 21:17 Dose: 100 mg Documented by: - Exam General: Alert, Oriented, Cooperative HEENT: Pupils Equal Neck: Supple, Trachea Midline Lungs: Clear to Auscultation, Normal Respiratory Effort Cardiovascular: Regular Rate, Regular Rhythm GI/Abdominal Exam: Normal Bowel Sounds, Tender Extremities: Normal Inspection Peripheral Pulses: 2+: Radial (L), Radial (R) Skin: Warm, Dry Neurological: No New Focal Deficit, Normal Gait Psy/Mental Status: Alert, Normal Affect - Patient Data Lab Results Last 24 hrs: Laboratory Results - last 24 hr 01/12/21 Range/Units 05:55 Magnesium 1.8 (1.8-2.4) mg/dL Result Diagrams: 01/10/21 08:14 01/10/21 08:14 Sepsis Event Note - Evaluation Sepsis Screening Result: No Definite Risk - Focused Exam Vital Signs: Vital Signs Temp Pulse Resp BP BP Pulse Ox 01/13/21 04:00 98.2 F 84 16 135/87 100 01/13/21 00:00 97.8 F 78 18 127/87 99 01/12/21 20:00 98.4 F 88 18 127/83 98 - Problem List & Annotations (1) Acute on chronic pancreatitis SNOMED Code(s): 305210977 Code(s): K85.90 - ACUTE PANCREATITIS WITHOUT NECROSIS OR INFECTION, UNSP; K86.1 - OTHER CHRONIC PANCREATITIS Status: Acute Current Visit: Yes (2) Alcoholism SNOMED Code(s): 2122845 Code(s): F10.20 - ALCOHOL DEPENDENCE, UNCOMPLICATED Status: Acute Current Visit: Yes - Problem List Review Problem List Initiated/Reviewed/Updated: Yes - My Orders Last 24 Hours: My Active Orders 01/12/21 09:00 Enoxaparin [Lovenox] 40 mg SUBCUT DAILY polyethylene glycoL 3350 [MiraLAX] 17 gm PO DAILY 01/12/21 11:15 Dextrose 5%-0.45% NaCl [Dextrose 5%-1/2 NS] 1,000 ml IV ASDIRECTED 01/12/21 Dinner Clear Liquid Diet [DIET] 01/12/21 21:37 fentaNYL [Sublimaze] 25 mcg IVPUSH Q4HR PRN - Assessment Assessment:: Acute on chronic alcoholic pancreatitis Continue NPO status -we will attempt clear liquid diet if patient's pain improved Pain and nausea management Aggressive fluid hydration h/o Alcoholism Pt was strongly advised to completely abstain from any ETOH use. switched to oral thimaine supplementation No current signs of withdrawal - patient denies history of withdrawal Full code status [id number] mL an hour D5 half NS Dietn.p.o. DVT prophylaxis- Lovenox - Plan Plan:: Acute on chronic alcoholic pancreatitis Patient appears to be tolerating clear liquid diet with minimal pain Pain and nausea management - will attempt to transition to PO pain medications today Constipation bowel regiment h/o Alcoholism Pt was strongly advised to completely abstain from any ETOH use. Oral thimaine supplementation No signs of withdrawal during hospital stay- patient denies history of withdrawal Full code status Fluidswill d/c Dietclears - can consider transition to full liquid diet DVT prophylaxis- Lovenox
[2021-01-13] MEDS: Dextrose 5%-0.45% NaCl 1,000 ML IV SCH (07:06)
[2021-01-13] MEDS: Enoxaparin 40 MG/0.4 ML Syringe SUBCUT SCH (09:17)
[2021-01-13] MEDS: Escitalopram 10 MG Tab PO SCH (09:17)
[2021-01-13] MEDS: Polyethylene Glycol 3350 Powder 17 GM Packet PO SCH (09:18)
[2021-01-13] MEDS: Sodium Chloride 0.9% 10 ML Syringe FLUSH PRN ×2 (10:34→15:50)
[2021-01-13] MEDS: Folic Acid 1 MG Tab PO SCH (20:12)
[2021-01-13] MEDS: Thiamine 100 MG Tab PO SCH (20:12)
[2021-01-13] MEDS: Multivitamin, Childrens Tab.Chew PO SCH (20:12)
[2021-01-13] MEDS: Zolpidem 5 MG Tab PO PRN (23:18)
--- NOTE | 2021-01-14 06:00 | PCM.PN ---
- General Info Date of Service: 01/14/21 Subjective Update: Patient overall states he feels significantly improved for admission and improved from prior day. States he is tolerating the advancement of his diet well and his pain is well controlled with oral medications. Patient states he did have some passing a bowel gas but not had a bowel movement. Patient denies any fevers or chills, shortness of breath or chest pains or pressures. Functional Status: Reports: Pain Controlled, Tolerating Diet - Review of Systems General: Reports: No Symptoms HEENT: Reports: No Symptoms Pulmonary: Reports: No Symptoms Cardiovascular: Reports: No Symptoms Gastrointestinal: Reports: Abdominal Pain Genitourinary: Reports: No Symptoms Musculoskeletal: Reports: No Symptoms Skin: Reports: No Symptoms Neurological: Reports: No Symptoms Psychiatric: Reports: No Symptoms - Patient Data Vitals - Most Recent: Last Vital Signs Temp 99.2 F 01/13/21 20:00 Pulse 92 01/13/21 20:00 Resp 18 01/13/21 20:00 BP 152/94 H 01/13/21 20:00 Pulse Ox 96 01/13/21 20:00 Weight - Most Recent: 229 lb I&O - Last 24 Hours: Intake & Output 01/13/21 01/13/21 01/14/21 14:59 22:59 06:59 Intake Total 2240 1220 Output Total 1300 500 Balance 940 720 Med Orders - Current: Current Medications Enoxaparin Sodium (Enoxaparin 40 Mg/0.4 Ml Syringe) 40 mg SUBCUT DAILY [facility] Last Admin: 01/13/21 09:17 Dose: 40 mg Documented by: Escitalopram Oxalate (Escitalopram 10 Mg Tab) 20 mg PO DAILY [facility] Last Admin: 01/13/21 09:17 Dose: 20 mg Documented by: Folic Acid (Folic Acid 1 Mg Tab) 1 mg PO BEDTIME [facility] Last Admin: 01/13/21 20:12 Dose: 1 mg Documented by: Ibuprofen (Ibuprofen 400 Mg Tab) 400 mg PO Q6H PRN PRN Reason: Pain (mild 1-3) Last Admin: 01/13/21 20:12 Dose: 400 mg Documented by: Multivitamins/Minerals/Vitamin C (Multivitamin, Childrens Tab.Chew) 1 tab PO BEDTIME [facility] Last Admin: 01/13/21 20:12 Dose: 1 tab Documented by: Ondansetron HCl (Ondansetron 4 Mg Tab.Dis) 4 mg PO Q4H PRN PRN Reason: nausea, able to take PO Last Admin: 01/10/21 13:13 Dose: 4 mg Documented by: Oxycodone/Acetaminophen (Acetaminophen/Oxycodone 325-5 Mg Tab) 1 tab PO Q4H PRN PRN Reason: Pain (moderate 4-6), try first Last Admin: 01/13/21 23:18 Dose: 1 tab Documented by: Pantoprazole Sodium (Pantoprazole 40 Mg Tab.Cr) 40 mg PO ACBREAKFAST [facility] Last Admin: 01/13/21 05:22 Dose: 40 mg Documented by: Polyethylene Glycol (Polyethylene Glycol 3350 Powder 17 Gm Packet) 17 gm PO DAILY [facility] Last Admin: 01/13/21 09:18 Dose: 17 gm Documented by: Promethazine HCl (Promethazine 25 Mg/Ml Sdv) 6.25 mg IM Q6H PRN PRN Reason: Nausea/Vomiting Sodium Chloride (Sodium Chloride 0.9% 10 Ml Syringe) 10 ml FLUSH ASDIRECTED PRN PRN Reason: Keep Vein Open Last Admin: 01/13/21 15:50 Dose: 10 ml Documented by: Temazepam (Temazepam 15 Mg Cap) 15 mg PO BEDTIME PRN PRN Reason: Sleep, try second Thiamine HCl (Thiamine 100 Mg Tab) 100 mg PO BEDTIME [facility] Last Admin: 01/13/21 20:12 Dose: 100 mg Documented by: Zolpidem Tartrate (Zolpidem 5 Mg Tab) 5 mg PO BEDTIME PRN PRN Reason: Sleep, try first Last Admin: 01/13/21 23:18 Dose: 5 mg Documented by: Discontinued Medications Fentanyl (Fentanyl 100 Mcg/2 Ml Sdv) 25 mcg IVPUSH Q4HR PRN PRN Reason: Abdominal Pain Last Admin: 01/13/21 15:49 Dose: 25 mcg Documented by: Hydromorphone HCl (Hydromorphone 1 Mg/Ml Syringe) 1 mg IVPUSH ONETIME ONE Stop: 01/10/21 08:09 Last Admin: 01/10/21 08:19 Dose: 1 mg Documented by: Hydromorphone HCl (Hydromorphone 1 Mg/Ml Syringe) 1 mg IVPUSH ONETIME ONE Stop: 01/10/21 08:47 Last Admin: 01/10/21 09:06 Dose: 1 mg Documented by: Hydromorphone HCl (Hydromorphone 1 Mg/Ml Syringe) 1 mg IVPUSH ONETIME ONE Stop: 01/10/21 10:59 Last Admin: 01/10/21 11:10 Dose: 1 mg Documented by: Hydromorphone HCl (Hydromorphone 1 Mg/Ml Syringe) 1 mg IVPUSH Q2H PRN PRN Reason: Pain (severe 7-10) Last Admin: 01/10/21 17:07 Dose: 1 mg Documented by: Hydromorphone HCl (Hydromorphone 1 Mg/Ml Syringe) 2 mg IVPUSH Q2H PRN PRN Reason: Pain (severe 7-10) Last Admin: 01/12/21 19:32 Dose: 2 mg Documented by: Sodium Chloride (Normal Saline) 1,000 mls @ 999 mls/hr IV .BOLUS ONE Stop: 01/10/21 09:08 Last Admin: 01/10/21 08:23 Dose: 999 mls/hr Documented by: Dextrose/Sodium Chloride (Dextrose 5%-1/2 Ns) 1,000 mls @ 150 mls/hr IV ASDIRECTED [facility] Stop: 01/11/21 12:46 Last Admin: 01/11/21 01:41 Dose: 150 mls/hr Documented by: Dextrose/Sodium Chloride (Dextrose 5%-1/2 Ns) 1,000 mls @ 150 mls/hr IV ASDIRECTED [facility] Stop: 01/12/21 12:46 Dextrose/Sodium Chloride (Dextrose 5%-1/2 Ns) 1,000 mls @ 150 mls/hr IV ASDIRECTED [facility] Stop: 01/12/21 08:14 Last Admin: 01/12/21 04:23 Dose: 150 mls/hr Documented by: Dextrose/Sodium Chloride (Dextrose 5%-1/2 Ns) 1,000 mls @ 100 mls/hr IV ASDIRECTED [facility] Last Admin: 01/13/21 07:06 Dose: 100 mls/hr Documented by: Iopamidol (Iopamidol 612 Mg/Ml 100 Ml Bottle) 100 ml IVPUSH ONETIME ONE Stop: 01/10/21 08:46 Last Admin: 01/10/21 10:05 Dose: 100 ml Documented by: Ketorolac Tromethamine (Ketorolac 30 Mg/Ml Sdv) 30 mg IVPUSH ONETIME ONE Stop: 01/11/21 08:04 Last Admin: 01/11/21 08:24 Dose: 30 mg Documented by: Ketorolac Tromethamine (Ketorolac 30 Mg/Ml Sdv) 30 mg IVPUSH ONETIME ONE Stop: 01/11/21 20:16 Last Admin: 01/11/21 20:27 Dose: 30 mg Documented by: Lorazepam (Lorazepam 0.5 Mg Tab) 0 mg PO TITRATE PRN; Protocol PRN Reason: alcohol withdrawal Ondansetron HCl (Ondansetron 4 Mg/2 Ml Sdv) 4 mg IV ONETIME ONE Stop: 01/10/21 08:09 Last Admin: 01/10/21 08:20 Dose: 4 mg Documented by: Ondansetron HCl (Ondansetron 4 Mg/2 Ml Sdv) 4 mg IV ONETIME ONE Stop: 01/10/21 08:47 Last Admin: 01/10/21 11:01 Dose: 4 mg Documented by: Ondansetron HCl (Ondansetron 4 Mg/2 Ml Sdv) Confirm Administered Dose 4 mg .ROUTE .STK-MED ONE Stop: 01/10/21 11:06 Last Admin: 01/11/21 07:41 Dose: Not Given Documented by: Thiamine HCl (Thiamine 200 Mg/2 Ml Mdv) 100 mg IVPUSH DAILY [facility] Last Admin: 01/10/21 21:17 Dose: 100 mg Documented by: - Exam General: Alert, Oriented HEENT: Pupils Equal, Pupils Reactive Neck: Supple Lungs: Clear to Auscultation, Normal Respiratory Effort Cardiovascular: Regular Rate, Regular Rhythm GI/Abdominal Exam: Normal Bowel Sounds, Soft, Tender Back Exam: Normal Inspection Extremities: Normal Inspection, Normal Range of Motion Peripheral Pulses: 2+: Radial (L), Radial (R) Skin: Warm, Dry Neurological: No New Focal Deficit Psy/Mental Status: Alert, Normal Affect - Patient Data Result Diagrams: 01/10/21 08:14 01/10/21 08:14 Sepsis Event Note - Evaluation Sepsis Screening Result: No Definite Risk - Focused Exam Vital Signs: Vital Signs Temp Pulse Resp BP Pulse Ox 01/13/21 20:00 99.2 F 92 18 152/94 H 96 - Problem List & Annotations (1) Acute on chronic pancreatitis SNOMED Code(s): 003321761 Code(s): K85.90 - ACUTE PANCREATITIS WITHOUT NECROSIS OR INFECTION, UNSP; K86.1 - OTHER CHRONIC PANCREATITIS Status: Acute Current Visit: Yes (2) Alcoholism SNOMED Code(s): 8008570 Code(s): F10.20 - ALCOHOL DEPENDENCE, UNCOMPLICATED Status: Acute Current Visit: Yes - Problem List Review Problem List Initiated/Reviewed/Updated: Yes - My Orders Last 24 Hours: My Active Orders 01/13/21 Breakfast Full Liquid Diet [DIET] - Assessment Assessment:: Acute on chronic alcoholic pancreatitis Continue NPO status -we will attempt clear liquid diet if patient's pain improv ed Pain and nausea management Aggressive fluid hydration h/o Alcoholism Pt was strongly advised to completely abstain from any ETOH use. switched to oral thimaine supplementation No current signs of withdrawal - patient denies history of withdrawal Full code status [id number] mL an hour D5 half NS Dietn.p.o. DVT prophylaxis- Lovenox - Plan Plan:: Acute on chronic alcoholic pancreatitis Patient is tolerating advancing of diet and is pain is well controlled with minimal p.o. medications, overall pancreatitis seems to be resolving Constipation bowel regiment h/o Alcoholism Pt was strongly advised to completely abstain from any ETOH use. Oral thimaine supplementation No signs of withdrawal during hospital stay- patient denies history of withdrawal Full code status Fluidswill d/c Dietadvance as tolerated DVT prophylaxis- Lovenox Patient is medically stable for discharge will discharge today
[2021-01-14] MEDS: Pantoprazole 40 MG Tab.CR PO SCH (06:12)
[2021-01-14] MEDS: Acetaminophen/oxyCODONE 325-5 MG Tab PO PRN ×2 (06:12→11:02)
[2021-01-14] MEDS: Enoxaparin 40 MG/0.4 ML Syringe SUBCUT SCH (09:09)
[2021-01-14] MEDS: Polyethylene Glycol 3350 Powder 17 GM Packet PO SCH (09:09)
[2021-01-14] MEDS: Escitalopram 10 MG Tab PO SCH (09:10)
--- NOTE | 2021-01-14 10:39 | PCM.DCSUM1 ---
Discharge Summary - Hospital Course Free Text/Narrative:: Mr. Marie is a 45-year-old male with his history of alcoholism and chronic pancreatitis who presented to the ED with an episode of acute abdominal pain. He was on a train on his way from [place] to [facility] when he developed a sudden onset of epigastric and LUQ abdominal pain. The pain is a dull in nature, about 8 out of 10 intensity mainly epigastric and left upper quadrant regions. It feels similar to his prior acute pancreatitis pain. He also has some nausea but no vomiting. He has had about 6 episodes of acute pancreatitis in the past requiring hospitalizations in different hospitals. His most recent episode was about a week ago in [place]. He admits to having had 2 to 3 glasses of wine yesterday and thinks that this may have triggered the pain episode. He was a heavy alcohol drinker until about 7 years ago. 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 He admits to drinking heavily during the time and admits to trying out a few street drugs such as marijuana and cocaine. After he got he moved to [place] where he currently lives with his family. Patient was admitted for further evaluation. Patient was given aggressive IV fluid resuscitation. Patient was also placed n.p.o., given aggressive pain control regiment. Over the course of several days patient's diet was slowly advanced and his abdominal pain was well controlled on p.o. pain medications. Had a prolonged discussion with the patient regarding completing total alcohol cessation he stated understanding. As patient was tolerating the advancing of his diet with minimal pain he was medically stable for discharge and will be discharged. - Discharge Data Discharge Date: 01/14/21 Discharge Disposition: Home, Self-Care 01 Condition: Good - Referral to Home Health Primary Care Physician: PCP None - Discharge Diagnosis/Problem(s) (1) Acute on chronic pancreatitis SNOMED Code(s): 826215518 ICD Code: K85.90 - ACUTE PANCREATITIS WITHOUT NECROSIS OR INFECTION, UNSP; K86.1 - OTHER CHRONIC PANCREATITIS Status: Acute Current Visit: Yes (2) Alcoholism SNOMED Code(s): 0426023 ICD Code: F10.20 - ALCOHOL DEPENDENCE, UNCOMPLICATED Status: Acute Current Visit: Yes - Patient Instructions Diet, Other: low fat Driving: Do Not Drive (while on opioid medications) - Discharge Plan *PRESCRIPTION DRUG MONITORING PROGRAM REVIEWED*: Yes *COPY OF PRESCRIPTION DRUG MONITORING REPORT IN PATIENT VON: Not Applicable Prescriptions/Med Rec: Acetaminophen/oxyCODONE [Percocet 325-5 MG] 1 tab PO Q6HR PRN #15 tablet PRN Reason: Pain (moderate 4-6), try first Home Medications: Home Meds Escitalopram Oxalate [Lexapro] 20 mg PO DAILY 01/10/21 [History] Acetaminophen/oxyCODONE [Percocet 325-5 MG] 1 tab PO Q6HR PRN #15 tablet 01/14/21 [Rx] Referrals: PCP,None [Primary Care Provider] - - Discharge Summary/Plan Comment DC Time >30 min.: Yes Total # of Minutes for Discharge Time: 30 minutes - Patient Data Vitals - Most Recent: Last Vital Signs Temp 98.3 F 01/14/21 07:28 Pulse 88 01/14/21 07:28 Resp 22 H 01/14/21 07:28 BP 141/92 H 01/14/21 07:28 Pulse Ox 98 01/14/21 07:28 Weight - Most Recent: 229 lb I&O - Last 24 hours: Intake & Output 01/13/21 01/14/21 01/14/21 22:59 06:59 14:59 Intake Total 1220 850 240 Output Total 500 Balance 720 850 240 Med Orders - Current: Current Medications Enoxaparin Sodium (Enoxaparin 40 Mg/0.4 Ml Syringe) 40 mg SUBCUT DAILY [facility] Last Admin: 01/14/21 09:09 Dose: 40 mg Documented by: Escitalopram Oxalate (Escitalopram 10 Mg Tab) 20 mg PO DAILY [facility] Last Admin: 01/14/21 09:10 Dose: 20 mg Documented by: Folic Acid (Folic Acid 1 Mg Tab) 1 mg PO BEDTIME [facility] Last Admin: 01/13/21 20:12 Dose: 1 mg Documented by: Ibuprofen (Ibuprofen 400 Mg Tab) 400 mg PO Q6H PRN PRN Reason: Pain (mild 1-3) Last Admin: 01/13/21 20:12 Dose: 400 mg Documented by: Multivitamins/Minerals/Vitamin C (Multivitamin, Childrens Tab.Chew) 1 tab PO BEDTIME [facility] Last Admin: 01/13/21 20:12 Dose: 1 tab Documented by: Ondansetron HCl (Ondansetron 4 Mg Tab.Dis) 4 mg PO Q4H PRN PRN Reason: nausea, able to take PO Last Admin: 01/10/21 13:13 Dose: 4 mg Documented by: Oxycodone/Acetaminophen (Acetaminophen/Oxycodone 325-5 Mg Tab) 1 tab PO Q4H PRN PRN Reason: Pain (moderate 4-6), try first Last Admin: 01/14/21 06:12 Dose: 1 tab Documented by: Pantoprazole Sodium (Pantoprazole 40 Mg Tab.Cr) 40 mg PO ACBREAKFAST [facility] Last Admin: 01/14/21 06:12 Dose: 40 mg Documented by: Polyethylene Glycol (Polyethylene Glycol 3350 Powder 17 Gm Packet) 17 gm PO DAILY [facility] Last Admin: 01/14/21 09:09 Dose: 17 gm Documented by: Promethazine HCl (Promethazine 25 Mg/Ml Sdv) 6.25 mg IM Q6H PRN PRN Reason: Nausea/Vomiting Sodium Chloride (Sodium Chloride 0.9% 10 Ml Syringe) 10 ml FLUSH ASDIRECTED PRN PRN Reason: Keep Vein Open Last Admin: 01/13/21 15:50 Dose: 10 ml Documented by: Temazepam (Temazepam 15 Mg Cap) 15 mg PO BEDTIME PRN PRN Reason: Sleep, try second Thiamine HCl (Thiamine 100 Mg Tab) 100 mg PO BEDTIME [facility] Last Admin: 01/13/21 20:12 Dose: 100 mg Documented by: Zolpidem Tartrate (Zolpidem 5 Mg Tab) 5 mg PO BEDTIME PRN PRN Reason: Sleep, try first Last Admin: 01/13/21 23:18 Dose: 5 mg Documented by: Discontinued Medications Fentanyl (Fentanyl 100 Mcg/2 Ml Sdv) 25 mcg IVPUSH Q4HR PRN PRN Reason: Abdominal Pain Last Admin: 01/13/21 15:49 Dose: 25 mcg Documented by: Hydromorphone HCl (Hydromorphone 1 Mg/Ml Syringe) 1 mg IVPUSH ONETIME ONE Stop: 01/10/21 08:09 Last Admin: 01/10/21 08:19 Dose: 1 mg Documented by: Hydromorphone HCl (Hydromorphone 1 Mg/Ml Syringe) 1 mg IVPUSH ONETIME ONE Stop: 01/10/21 08:47 Last Admin: 01/10/21 09:06 Dose: 1 mg Documented by: Hydromorphone HCl (Hydromorphone 1 Mg/Ml Syringe) 1 mg IVPUSH ONETIME ONE Stop: 01/10/21 10:59 Last Admin: 01/10/21 11:10 Dose: 1 mg Documented by: Hydromorphone HCl (Hydromorphone 1 Mg/Ml Syringe) 1 mg IVPUSH Q2H PRN PRN Reason: Pain (severe 7-10) Last Admin: 01/10/21 17:07 Dose: 1 mg Documented by: Hydromorphone HCl (Hydromorphone 1 Mg/Ml Syringe) 2 mg IVPUSH Q2H PRN PRN Reason: Pain (severe 7-10) Last Admin: 01/12/21 19:32 Dose: 2 mg Documented by: Sodium Chloride (Normal Saline) 1,000 mls @ 999 mls/hr IV .BOLUS ONE Stop: 01/10/21 09:08 Last Admin: 01/10/21 08:23 Dose: 999 mls/hr Documented by: Dextrose/Sodium Chloride (Dextrose 5%-1/2 Ns) 1,000 mls @ 150 mls/hr IV ASDIRECTED [facility] Stop: 01/11/21 12:46 Last Admin: 01/11/21 01:41 Dose: 150 mls/hr Documented by: Dextrose/Sodium Chloride (Dextrose 5%-1/2 Ns) 1,000 mls @ 150 mls/hr IV ASDIRECTED [facility] Stop: 01/12/21 12:46 Dextrose/Sodium Chloride (Dextrose 5%-1/2 Ns) 1,000 mls @ 150 mls/hr IV ASDIRECTED [facility] Stop: 01/12/21 08:14 Last Admin: 01/12/21 04:23 Dose: 150 mls/hr Documented by: Dextrose/Sodium Chloride (Dextrose 5%-1/2 Ns) 1,000 mls @ 100 mls/hr IV ASDIRECTED [facility] Last Admin: 01/13/21 07:06 Dose: 100 mls/hr Documented by: Iopamidol (Iopamidol 612 Mg/Ml 100 Ml Bottle) 100 ml IVPUSH ONETIME ONE Stop: 01/10/21 08:46 Last Admin: 01/10/21 10:05 Dose: 100 ml Documented by: Ketorolac Tromethamine (Ketorolac 30 Mg/Ml Sdv) 30 mg IVPUSH ONETIME ONE Stop: 01/11/21 08:04 Last Admin: 01/11/21 08:24 Dose: 30 mg Documented by: Ketorolac Tromethamine (Ketorolac 30 Mg/Ml Sdv) 30 mg IVPUSH ONETIME ONE Stop: 01/11/21 20:16 Last Admin: 01/11/21 20:27 Dose: 30 mg Documented by: Lorazepam (Lorazepam 0.5 Mg Tab) 0 mg PO TITRATE PRN; Protocol PRN Reason: alcohol withdrawal Ondansetron HCl (Ondansetron 4 Mg/2 Ml Sdv) 4 mg IV ONETIME ONE Stop: 01/10/21 08:09 Last Admin: 01/10/21 08:20 Dose: 4 mg Documented by: Ondansetron HCl (Ondansetron 4 Mg/2 Ml Sdv) 4 mg IV ONETIME ONE Stop: 01/10/21 08:47 Last Admin: 01/10/21 11:01 Dose: 4 mg Documented by: Ondansetron HCl (Ondansetron 4 Mg/2 Ml Sdv) Confirm Administered Dose 4 mg .ROUTE .STK-MED ONE Stop: 01/10/21 11:06 Last Admin: 01/11/21 07:41 Dose: Not Given Documented by: Thiamine HCl (Thiamine 200 Mg/2 Ml Mdv) 100 mg IVPUSH DAILY [facility] Last Admin: 01/10/21 21:17 Dose: 100 mg Documented by:
== END 2021-01-14 16:15 | disposition home or self-care (01) | DRG 282 ==
LOC: DL.ED 07:49 → DL.MS 11:36
PROVIDERS: ADMIT Hospitalist; ATTEND Internal Medicine
DX: K85.20 Alcohol induced acute pancreatitis without necrosis or infection (principal); K86.1 Other chronic pancreatitis; F10.20 Alcohol dependence, uncomplicated; H54.7 Unspecified visual loss; I10 Essential (primary) hypertension; Z98.890 Other specified postprocedural states; Z20.822 Contact with and (suspected) exposure to COVID-19; K59.00 Constipation, unspecified
CPT/HCPCS: 36415; 74177; 80053; 80305-QW; 81003; 82150; 83605; 83690; 83735; 85025; 86140; 96374; 96375; 96376; 99285-25; A9270-GY; J1170; J1650; J1885; J2405; J3010; J3411; J7030; J7042; Q9967; U0002